=== PATIENT | male | born 1985 | race Caucasian/White ===

== ENCOUNTER → 2021-01-28 09:36 | Outpatient (CLI) | payer SELFPAY | PROVIDERS: PCP Pediatrics; Visit Provider Nurse Practitioner | DX: Z20.822 Contact with and (suspected) exposure to COVID-19 (principal) | CPT/HCPCS: C9803; U0003; U0005 ==

== ENCOUNTER → 2021-03-24 15:42 | Outpatient (CLI) | payer OTHER, SELFPAY ==
--- NOTE | 2021-03-24 15:43 | MR_ITS ---
FINAL REPORT CLINICAL HISTORY: LBP radiating down left leg. LBP WORSE ON LT SIDE. PAIN DOWN LT LEG TO KNEE. SYMPTOMS [id number]. NO INJURY OR TRAUMA. FINDINGS: Multiplanar MR imaging of the lumbar spine was performed without contrast. On the sagittal T2-weighted images, disc degeneration is seen at L4-5. There are endplate changes at L4-5. The vertebral alignment is normal. There is no evidence of fracture. The conus has an unremarkable appearance. L1-2: There is no significant canal stenosis or neural foraminal narrowing. L2-3: There is no significant canal stenosis or neural foraminal narrowing. L3-4: There is no significant canal stenosis or neural foraminal narrowing. L4-5: An annular bulge and facet arthropathy are present. There is a broad-based left paracentral disc protrusion resulting in left L5 nerve root impingement. There is severe bilateral neural foraminal narrowing. L5-S1: Facet arthropathy is present. There is no significant canal stenosis or neural foraminal narrowing. IMPRESSION: Broad-based left paracentral disc protrusion at L4-5 results in left L5 nerve root impingement and severe bilateral neural foraminal narrowing. Reviewed, Interpreted and Dictated by Dago Herrera III, MD Transcribed by Caridad Roth Authenticated by Dago Herrera III, MD on 03/24/2021 04:59:07 PM [facility]
== END ==
PROVIDERS: PCP Physician Assistant; Visit Provider Physician Assistant
DX: M54.50 Low back pain, unspecified (principal); M79.605 Pain in left leg
CPT/HCPCS: 72148; 76376

== ENCOUNTER → 2021-04-21 14:15 | Outpatient (POV) | payer OTHER, SELFPAY ==
[2021-04-21 14:33] VITALS: BP 109/83; PULSE 79; RESP 20; TEMP 35.6; O2SAT 98; BMI 26.5
--- NOTE | 2021-04-21 16:58 | HMH.PMCON ---
Assessment and Plan (1) Degenerative disc disease, lumbar Status: Acute Category: Medical Code(s): M51.36 - Other intervertebral disc degeneration, lumbar region (2) Lumbar radiculopathy Status: Acute Category: Medical Code(s): M54.16 - Radiculopathy, lumbar region (3) Facet arthropathy Status: Acute Category: Medical Code(s): M47.819 - Spondylosis without myelopathy or radiculopathy, site unspecified (4) Lumbar spondylosis Status: Acute Category: Medical Code(s): M47.816 - Spondylosis without myelopathy or radiculopathy, lumbar region (5) Low back pain radiating to left leg Status: Chronic Category: Medical Code(s): M54.50 - Low back pain, unspecified; M79.605 - Pain in left leg - Assessment and plan all Dx Assessment and Plan for all problems:: CLINICAL HISTORY: LBP radiating down left leg. LBP WORSE ON LT SIDE. PAIN DOWN LT LEG TO KNEE. SYMPTOMS [id number]. NO INJURY OR TRAUMA. FINDINGS: Multiplanar MR imaging of the lumbar spine was performed without contrast. On the sagittal T2-weighted images, disc degeneration is seen at L4-5. There are endplate changes at L4-5. The vertebral alignment is normal. There is no evidence of fracture. The conus has an unremarkable appearance. L1-2: There is no significant canal stenosis or neural foraminal narrowing. L2-3: There is no significant canal stenosis or neural foraminal narrowing. L3-4: There is no significant canal stenosis or neural foraminal narrowing. L4-5: An annular bulge and facet arthropathy are present. There is a broad-based left paracentral disc protrusion resulting in left L5 nerve root impingement. There is severe bilateral neural foraminal narrowing. L5-S1: Facet arthropathy is present. There is no significant canal stenosis or neural foraminal narrowing. IMPRESSION: Broad-based left paracentral disc protrusion at L4-5 results in left L5 nerve root impingement and severe bilateral neural foraminal narrowing. Reviewed, Interpreted and Dictated by Dago Herrera III, MD Transcribed by Caridad Roth Authenticated by Dago Herrera III, MD on 03/24/2021 04:59:07 PM [facility] Patient is a pleasant 35-year-old male who presents today with low back pain that radiates mainly to his left side. He has an abnormal MRI. At L4-L5, there is a broad base left paracentral disc protrusion resulting in left L5 nerve root impingement, severe bilateral neuroforaminal narrowing at L5 nerve root, he has facet arthropathies at L4-L5 and L5-S1. Patient has been referred to physical therapy and will start his sessions soon with them. Previous MRI and presentation, I will schedule the patient for a medial branch block at L4-L5, L5-S1. Risks and benefits of the procedure have been explained to the patient. Patient would like to proceed with the procedure. Patient has been instructed to contact the clinic with any concerns before the next appointment. Dr. Duarte has reviewed this note and agrees with this plan of care. This note was dictated using voice recognition software and make contain errors or omissions. HPI - Data of Consult Patient: new to practice Consult date: 04/21/21 Requesting Physician: ZULLY Ybarra - Consult Narrative Reason for consult: Back pain History of present illness: Mr. Mcrae is a 35 year old male is a new patient. Patient is referred by Loida Daniels PA-C. Thank you for the referral. Patient presents today with a chronic back pain that has gotten worse in the last 2 to 3 months. Patient reports radiating pain to his bilateral lower extremities, worse on the left side than the right.. Loss of bowel and bladder functions. Patient denies any recent trauma or falls. Patient says that is worse with any prolonged activity especially with walking and lifting. Patient has gone to the chiropractor with minimal relief. Patient is also been to his primary care provider who did 2 rounds of Toradol shots and
== END ==
PROVIDERS: Visit Provider Student in an Organized Health Care Education/Training Program
DX: M51.16 Intervertebral disc disorders with radiculopathy, lumbar region (principal); M47.816 Spondylosis without myelopathy or radiculopathy, lumbar region
CPT/HCPCS: 99202; G0463

== ENCOUNTER 2021-04-29 14:47 | Day surgery (SDC) | payer OTHER, SELFPAY ==
[2021-04-29 14:51] VITALS: BP 140/94; BP 143/92; PULSE 91; PULSE 96; RESP 18; RESP 20; O2SAT 100
[2021-04-29 14:55] VITALS: BP 138/99; PULSE 95; RESP 20; TEMP 36.7; O2SAT 99; BMI 25.8
--- NOTE | 2021-04-29 15:13 | HMH.PMPROC ---
- Procedure Date: 04/29/21 Time: 15:13 Anesthesiologist:: Usman Duarte MD Complications:: None Pre-procedure Diagnosis:: Degenerative disc disease of lumbar spine with lumbar spondylosis and lumbar facet arthropathy Post-procedure Diagnosis:: Same Indications for Procedure:: This patient is a pleasant 35-year-old white male who we are treating for low back pain with lumbar spondylosis and lumbar facet arthropathy. He has increasing pain in his back worse with extension and twisting. We will plan on bilateral lumbar facet joint injection/medial branch blocks of L4-5 and L5-S1 today. Procedure Details:: Lumbar medial branch block Informed consent was obtained and the risks and benefits of the procedure was explained to the patient. The back was prepped using ChloraPrep. The skin and subcutaneous tissues were anesthetized using lidocaine. I placed 22-gauge spinal needles into the facet joint/medial branches of L4-L5 and L5-S1 bilaterally. Needle placement was confirmed with dye. After this we injected 3 mL bupivacaine 0.25% and Depo-Medrol 20 mg into each facet joint/medial branch of L4-L5 and L5-S1 bilaterally. We used a total of 80 mg Depo-Medrol for both levels bilaterally. The patient tolerated the procedure well with no complications. Plan and Disposition:: We will follow-up with him in 2 weeks. Will reevaluate symptoms at that time.
[2021-04-29 15:14] VITALS: BP 124/90; PULSE 114; RESP 20; O2SAT 96
== END 2021-04-29 15:15 | disposition home or self-care (01) ==
LOC: SC.PAINP 14:48
PROVIDERS: PCP Physician Assistant; Visit Provider Anesthesiology
DX: M51.36 Other intervertebral disc degeneration, lumbar region (principal); M47.816 Spondylosis without myelopathy or radiculopathy, lumbar region; M54.06 Panniculitis affecting regions of neck and back, lumbar region; J45.909 Unspecified asthma, uncomplicated; Z72.0 Tobacco use
CPT/HCPCS: 62323; J1040; Q9966

== ENCOUNTER → 2021-06-02 11:36 | Outpatient (POV) | payer OTHER, SELFPAY ==
[2021-06-02 11:49] VITALS: BP 113/81; PULSE 95; RESP 18; TEMP 36.5; O2SAT 97; BMI 25.8
--- NOTE | 2021-06-02 14:00 | HMH.PAINSOAP ---
[facility] Pain Management SOAP Note Subjective:: Patient is a pleasant 35-year-old male who is here for a follow up after facet injections/medial branch block of L4-L5 and L5-S1 bilaterally #1 On April 29, 2021. Patient is currently being treated for degenerative disc disease of lumbar spine, lumbar spondylosis, lumbar facet arthropathy. After the procedure, patients reports 100% relief and rates pain today at 0 out of 10. Patient denies any issues after the procedure. Patient has been able to increase his activity since the injection. Patient is satisfied after the injection. Michele number [id number] with an active morphine equivalent 0. Drug screens have been reviewed and appropriate. Review of Systems: General: No recent weight changes, no fever, no sleep disturbances Respiratory: No cough, no shortness of air, no recurring pulmonary infections Cardiovascular/peripheral vascular: No chest pain, no palpitations, no edema, no shortness of breath Gastrointestinal: No new onset incontinence, normal bowel movements reported Genitourinary: No new onset incontinence Musculoskeletal: Low back pain Psychiatric: [Normal mood/affect] Neurological: [Denies weakness in extremities], [denies balance issues] Objective:: Physical Exam: General: Alert and oriented x3, no acute distress, pleasant and cooperative, [on room air] Lungs: Respirations even and unlabored, symmetrical chest expansion Eyes: PERRL Musculoskeletal: Flexion and extension of lumbar [spine] somewhat guarded secondary to pain, [antalgic gait noted]; Neurological: Speech clear, no gross sensory deficit Assessment:: Degenerative disc disease of lumbar spine Lumbar facet arthropathy Lumbar spondylosis Plan:: Patient continues to have significant relief after the medial branch block injection. Denies any issues after the injection. We will follow-up with this patient in 3 months for reevaluation of chronic pain syndrome and to see if we need to do a repeat injection. Patient has been instructed to contact the clinic with any concerns before the next appointment. Dr. Duarte has reviewed this note and agrees with this plan of care. This note was dictated using voice recognition software and make contain errors or omissions. [facility] History 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: Reports:: Asthma Denies:: Cancer, Diabetes Mellitus Type 1, Diabetes Mellitus Type 2, MRSA, Seizures *Have you ever received a pneumonia vaccine?: No *Have you received a flu vaccine this season?: No Other 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: Reports: Arthritis Other Surgeries: Yes: Hernia Repair Amputation: No Fractures: Yes (Finger, left middle) - *Social History Smoking Status: Current every day smoker Tobacco Type: e-cigarettes # Packs/Day (cigarettes): 1 Alcohol Intake: never Substance Use Type: marijuana *Occupational Status:: employed Housing: house Household Members: other *Travel in the last 8 weeks: None Family Hx:: Unable to obtain
== END ==
PROVIDERS: Visit Provider Student in an Organized Health Care Education/Training Program
DX: M51.36 Other intervertebral disc degeneration, lumbar region (principal); M47.816 Spondylosis without myelopathy or radiculopathy, lumbar region; M54.06 Panniculitis affecting regions of neck and back, lumbar region
CPT/HCPCS: 99212; G0463

== ENCOUNTER 2021-07-07 17:51 | Emergency (ER) | payer OTHER, SELFPAY ==
[2021-07-07 17:53] VITALS: BP 142/91; PULSE 89; RESP 18; TEMP 36.7; O2SAT 100; BMI 25.8
--- NOTE | 2021-07-07 17:55 | PC.NURSE ---
patient ambulatory to restroom to provide urine specimen
--- NOTE | 2021-07-07 17:59 | PC.NURSE ---
patient out of restroom, hooked up to monitor.
--- NOTE | 2021-07-07 18:02 | PC.NURSE ---
Cheyenne Cobian, RN at
[2021-07-07 18:05] LABS: Microscopic, Urine URINE MICROSCOPIC (MICROSCOPIC)
[2021-07-07 18:08] LABS: Appearance,Urine CLEAR (Clear); Bilirubin,Urine Negative (Negative); Blood, Urine TRACE-L (Negative); Color,Urine YELLOW (Yellow); Glucose,Urine (UA) Negative (Negative); Ketones,Urine Negative (Negative); Leukocyte Esterase,Urine 1+ (Negative); Nitrate,Urine Negative (Negative); PH,Urine 7.5 (5.0-8.5); Protein,Urine Negative (Negative); Specific Gravity, Urine <= 1.005 (1.005-1.030); Urobilinogen,Urine 0.2 EU/dl (0.2)
--- NOTE | 2021-07-07 18:08 | CT_ITS ---
PROCEDURE INFORMATION: Exam: CT Abdomen And Pelvis Without Contrast Exam date and time: 07/07/2021 6:10 PM Age: 35 years old Clinical indication: Other: Hematuria; Additional info: R/O kidney stone. Hematuria TECHNIQUE: Imaging protocol: Computed tomography of the abdomen and pelvis without contrast. Radiation optimization: All CT scans at this facility use at least one of these dose optimization techniques: automated exposure control; mA and/or kV adjustment per patient size (includes targeted exams where dose is matched to clinical indication); or iterative reconstruction. COMPARISON: MR LUMBAR SPINE WO CON 03/24/2021 4:08 PM FINDINGS: Liver: Normal. No mass. Gallbladder and bile ducts: Normal. No calcified stones. No ductal dilation. Pancreas: Normal. No ductal dilation. Spleen: The spleen is mildly prominent. Adrenal glands: Normal. No mass. Kidneys and ureters: Normal. No hydronephrosis. Stomach and bowel: Unremarkable. No obstruction. No mucosal thickening. Appendix: No evidence of appendicitis. Intraperitoneal space: Unremarkable. No free air. No significant fluid collection. Vasculature: Unremarkable. No abdominal aortic aneurysm. Lymph nodes: Unremarkable. No enlarged lymph nodes. Urinary bladder: Unremarkable as visualized. Reproductive: Unremarkable as visualized. Bones/joints: Unremarkable. No acute fracture. Soft tissues: Unremarkable. IMPRESSION: No definite evidence of acute abdominal or pelvic pathology. Remainder of findings as described above.
--- NOTE | 2021-07-07 18:10 | PC.NURSE ---
Cheyenne Cobian, RN at
--- NOTE | 2021-07-07 18:15 | PC.NURSE ---
patient to radiology with process environmental technician by wheelchair
--- NOTE | 2021-07-07 18:21 | PC.NURSE ---
patient back from radiology by wheelchair with sewer and drain technician
[2021-07-07 18:28] LABS: Basophils # 0.2 K/mm3 (0-0.2); Basophils % 2.1 % (0.1-2.0); Eosinophils # 0.3 K/mm3 (0.0-0.4); Eosinophils % 2.3 % (0.1-12.0); Hematocrit 45.8 % (42.0-52.0); Hemoglobin 15.4 g/dL (14.1-18.0); Lymphocytes # 1.5 K/mm3 (0.7-4.5); Lymphocytes % 12.8 % (10-50); Mean Corpuscular HGB Conc 33.5 g/dL (31.8-35.4); Mean Corpuscular Hemoglobin 29.2 pg (27.0-31.2); Mean Corpuscular Volume 87.1 fl (80-94); Mean Platelet Volume 8.3 fl (7.4-10.4); Monocytes # 0.7 K/mm3 (0.1-1.0); Monocytes % 5.8 % (1.7-9.3); Platelet Count 327 K/mm3 (142-424); Red Blood Count 5.26 M/mm3 (4.60-6.20); Red Cell Distribution Width 14.2 % (11.5-17.5); White Blood Count 11.7 K/mm3 (4.8-10.8)
[2021-07-07 18:29] LABS: Bacteria,Urine 1+ /lpf; RBC,Urine Occasional #/hpf (0-3)
[2021-07-07 18:30] VITALS: BP 122/86; PULSE 82; O2SAT 99
[2021-07-07 18:38] LABS: Alanine Aminotransferase 19 U/L (12-78); Albumin Level 4.3 g/dl (3.5-5.0); Albumin/Globulin Ratio 1.2 (1.1-1.8); Alkaline Phosphatase 79 U/L (38-126); Anion Gap 9.3 mEq/L (5-15); Aspartate Amino Transferase 26 U/L (17-59); Bilirubin,Total 0.2 mg/dl (0.2-1.3); Blood Urea Nitrogen 11 mg/dl (9-20); Calcium 9.4 mg/dl (8.4-10.2); Carbon Dioxide 34 mmol/L (22.0-30.0); Chloride 97 mmol/L (98-107); Creatinine Clearance Estimated 172 mL/min (50-200); Estimated Glomerular Filt Rate 129 ml/min (>60); GFR (African American) 156 ML/MIN (>60); Globulin 3.6 g/dL (1.3-3.2); Glucose 112 mg/dl (74-100); Potassium 3.3 mmoL/L (3.5-5.1); Sodium 137 mmol/L (136-145); Total Protein,Serum 7.9 g/dl (6.3-8.2)
--- NOTE | 2021-07-07 18:53 | HMH.EDGENADL ---
ED Disposition Clinical Impression: Urinary tract infection Qualifiers: Urinary tract infection type: site unspecified Hematuria presence: with hematuria Qualified Code(s): N39.0 - Urinary tract infection, site not specified Hematuria Qualifiers: Hematuria type: gross Qualified Code(s): R31.0 - Gross hematuria Disposition: Home, Self-Care Condition on Discharge: Good Instructions: DI for Urinary Tract Infection (UTI), DI for Hematuria Additional Instructions: Take antibiotics as prescribed. Ibuprofen as needed for pain. Additional instructions for URINARY TRACT INFECTION: Take antibiotic as prescribed. See your physician in 2-3 days for follow up and culture results. Return immediately if you have an uncontrollable fever greater than 102 degrees, severe back or abdominal pain, inability to urinate, or repetitive vomiting. Prescriptions: Ciprofloxacin HCl [Cipro 500mg Tab] 500 mg PO BID #20 tab [id number] Doxycycline Monohydrate [Monodox] 100 mg PO BID #20 cap [facility]: [facility] Referrals: Loida Daniels PA [Primary Care Provider] - - Critical Care Critical Care Time: No Attestation: On 07/07/21, the high probability of a clinically significant, sudden or life threatening deterioration of the following system(s) required my full and direct attention, intervention and personal management. The time I documented below is in addition to time spent performing reported procedures but includes the following listed in this critical care notation. Medical Decision Making - Michele Inquiry Pt receiving controlled substance: No Vital Signs: 07/07/21 17:53 07/07/21 18:30 07/07/21 19:00 Temperature 98.1 F Temperature Source Oral Pulse Rate 82 81 Pulse Rate [Left Radial] 89 Respiratory Rate 18 Blood Pressure 122/86 133/94 H Blood Pressure [Right Arm] 142/91 H Blood Pressure Mean 98 Blood Pressure Mean [Right Arm] 108 Blood Pressure Source Automatic Cuff Blood Pressure Source [Right Arm] Automatic Cuff Blood Pressure Position Sitting Blood Pressure Position [Right Arm] Sitting 02 Sat by Pulse Oximetry 100 99 99 Oxygen Delivery Method Room Air Room Air - Lab Data Lab Results 07/07/21 18:00: Urine Color Yellow, Urine Appearance Clear, Urine pH 7.5, Ur Specific [place] <= 1.005, Urine Protein Negative, Urine Glucose (UA) Negative, Urine Ketones Negative, Urine Blood Trace-l, Urine Nitrate Negative, Urine Bilirubin Negative, Urine Urobilinogen 0.2, Ur Leukocyte Esterase 1+ A, Urine RBC Occasional, Urine WBC 10-20, Ur Squamous Epith Cells 3-5, Urine Bacteria 1+ 07/07/21 18:15: WBC 11.7 H, RBC 5.26, Hgb 15.4, Hct 45.8, MCV 87.1, MCH 29.2, MCHC 33.5, RDW 14.2, Plt Count 327, MPV 8.3, Neut % (Auto) 77.0, Lymph % (Auto) 12.8, [place] % (Auto) 5.8, Eos % (Auto) 2.3, Baso % (Auto) 2.1 H, Neut # (Auto) 9.0 H, Lymph # (Auto) 1.5, [place] # (Auto) 0.7, Eos # (Auto) 0.3, Baso # (Auto) 0.2 07/07/21 18:15: Sodium 137, Potassium 3.3 L, Chloride 97 L, Carbon Dioxide 34 H, Anion Gap 9.3, BUN 11, Creatinine 0.70, Estimated Creat Clear 172, Estimated GFR 129, Est GFR ( Amer) 156, Glucose 112 H, Calcium 9.4, Total Bilirubin 0.2, AST 26, ALT 19, Alkaline Phosphatase 79, Total Protein 7.9, Albumin 4.3, Globulin 3.6 H, Albumin/Globulin Ratio 1.2 Result diagrams: 07/07/21 18:15 07/07/21 18:15 Orders (Tests/Meds): ED MEDICATIONS Generic Name Dose Route Start Last Admin Trade Name Freq PRN Reason Stop Dose Admin Sodium Chloride 1,000 mls @ 999 mls/hr 07/07/21 18:30 07/07/21 18:27 Sod Chlor 0.9% 1000ml Bag IV 07/07/21 19:30 999 mls/hr .Q1H1M EMILIE Administration Ceftriaxone Sodium 1 gm/ 50 mls @ 100 mls/hr 07/07/21 19:15 07/07/21 19:24 Sodium Chloride IV 07/21/21 19:14 100 mls/hr Q24H EMILIE Administration Discontinued Medications Generic Name Dose Route Start Last Admin Trade Name Freq PRN
[2021-07-07 19:00] VITALS: BP 133/94; PULSE 81; O2SAT 99
--- NOTE | 2021-07-07 19:00 | PC.NURSE ---
ED MD at
[2021-07-07 19:37] VITALS: BP 130/88; PULSE 72; RESP 18; TEMP 36.7; O2SAT 99
[2021-07-12 07:42] LABS: Neisseria gonorrhoeae, NAA Negative (Negative)
== END 2021-07-07 19:42 | disposition home or self-care (01) ==
PROVIDERS: Emergency Provider Emergency Medicine; PCP Physician Assistant
DX: N30.01 Acute cystitis with hematuria (principal); A71.9 Trachoma, unspecified; M51.36 Other intervertebral disc degeneration, lumbar region; M54.17 Radiculopathy, lumbosacral region; M54.30 Sciatica, unspecified side; M54.50 Low back pain, unspecified; G89.29 Other chronic pain; M19.90 Unspecified osteoarthritis, unspecified site; J45.909 Unspecified asthma, uncomplicated; F17.290 Nicotine dependence, other tobacco product, uncomplicated; Z79.1 Long term (current) use of non-steroidal anti-inflammatories (NSAID); Z79.51 Long term (current) use of inhaled steroids; Z79.899 Other long term (current) drug therapy
CPT/HCPCS: 74176; 80053; 81001; 85025; 87086; 87491; 87591; 96361; 96374; 96375; 99285; J0696; J2405

== ENCOUNTER → 2021-07-19 13:50 | Outpatient (CLI) | payer OTHER, SELFPAY ==
[2021-07-19 14:04] LABS: Basophils # 0.1 K/mm3 (0-0.2); Basophils % 1.5 % (0.1-2.0); Eosinophils # 0.3 K/mm3 (0.0-0.4); Eosinophils % 3.7 % (0.1-12.0); Hematocrit 47.7 % (42.0-52.0); Hemoglobin 15.9 g/dL (14.1-18.0); Lymphocytes # 1.1 K/mm3 (0.7-4.5); Lymphocytes % 14.1 % (10-50); Mean Corpuscular HGB Conc 33.2 g/dL (31.8-35.4); Mean Corpuscular Hemoglobin 29.2 pg (27.0-31.2); Mean Corpuscular Volume 87.8 fl (80-94); Mean Platelet Volume 8.7 fl (7.4-10.4); Monocytes # 0.7 K/mm3 (0.1-1.0); Monocytes % 8.1 % (1.7-9.3); Neutrophils # 5.8 K/mm3 (1.8-7.8); Neutrophils % 72.5 % (37.0-80.0); Platelet Count 331 K/mm3 (142-424); Red Blood Count 5.44 M/mm3 (4.60-6.20); Red Cell Distribution Width 14.3 % (11.5-17.5)
[2021-07-19 14:17] LABS: Alanine Aminotransferase 33 U/L (12-78); Albumin Level 4.4 g/dl (3.5-5.0); Albumin/Globulin Ratio 1.3 (1.1-1.8); Alkaline Phosphatase 92 U/L (38-126); Anion Gap 15.8 mEq/L (5-15); Aspartate Amino Transferase 37 U/L (17-59); Bilirubin,Total 0.2 mg/dl (0.2-1.3); Blood Urea Nitrogen 12 mg/dl (9-20); Calcium 9.2 mg/dl (8.4-10.2); Carbon Dioxide 27 mmol/L (22.0-30.0); Chloride 101 mmol/L (98-107); Chol/HDL Ratio 5.1 (1-3.5); Cholesterol 188 mg/dl (140-200); Estimated Glomerular Filt Rate 129 ml/min (>60); GFR (African American) 156 ML/MIN (>60); Globulin 3.4 g/dL (1.3-3.2); Glucose 82 mg/dl (74-100); HDL Cholesterol 37 mg/dl (40-60); Potassium 3.8 mmoL/L (3.5-5.1); Sodium 140 mmol/L (136-145); Total Protein,Serum 7.8 g/dl (6.3-8.2); Triglycerides 110 mg/dl (30-150); VLDL Cholesterol 22 mg/dL (0-40)
[2021-07-19 14:28] LABS: Direct LDL Cholesterol 110.72 mg/dL (100-129)
[2021-07-21 08:22] LABS: HSV 1 IgG, Type Spec <0.91 index (0.00-0.90); HSV 2 IgG, Type Spec <0.91 index (0.00-0.90)
[2021-07-21 09:14] LABS: HIV Screen 4th Generation wRfx Non Reactive (Non Reactive)
[2021-07-21 22:15] LABS: Neisseria gonorrhoeae, NAA Negative (Negative)
== END ==
PROVIDERS: PCP Family Medicine; Visit Provider Family Medicine
DX: Z20.2 Contact with and (suspected) exposure to infections with a predominantly sexual mode of transmission (principal); Z11.4 Encounter for screening for human immunodeficiency virus [HIV]
CPT/HCPCS: 80053; 80061; 84443; 85025; 86695; 86703; 86790; 87491; 87591; G0432

== ENCOUNTER → 2021-08-11 15:49 | Outpatient (POV) | payer OTHER, SELFPAY ==
[2021-08-11 17:10] VITALS: BP 132/82; PULSE 80; RESP 18; TEMP 36.9; O2SAT 99; BMI 26.6
--- NOTE | 2021-08-13 13:29 | HMH.PAINSOAP ---
[facility] Pain Management SOAP Note Subjective:: Patient is a pleasant 35-year-old male who presents today for follow-up. Patient is currently being treated for degenerative disc disease of the lumbar spine, lumbar facet arthropathy, lumbar spondylosis. We have been managing this patient with injective therapy. He had a diagnostic facet injection/medial branch block at L4-L5 and L5-S1 bilaterally on April 29, 2021 that provided 100% of relief that lasted for 1.5 months. He was able to increase his activity during this 1 and half months. He was able to sleep more. We will try to schedule this patient for a second diagnostic medial branch block, he was denied by insurance. Patient states that his pain is worse with lumbar flexion, extension and especially rotation. Lumbar MRI does show an annular bulge and facet arthropathy. There is a broad-based left paracentral disc protrusion resulting in left L5 nerve root impingement. There is severe bilateral neural foraminal narrowing. There is also facet arthropathy present at L5-S1. Patient has tried and failed conservative therapy in the past including oral medications, physical therapy, and home exercises for greater than 6 weeks. He rates his pain today as 6 out of 10. Review of Systems: General: No recent weight changes, no fever, no sleep disturbances Respiratory: No cough, no shortness of air, no recurring pulmonary infections Cardiovascular/peripheral vascular: No chest pain, no palpitations, no edema, no shortness of breath Gastrointestinal: No new onset incontinence, normal bowel movements reported Genitourinary: No new onset incontinence Musculoskeletal: Low back pain Psychiatric: [Normal mood/affect] Neurological: [Denies weakness in extremities], [denies balance issues] Objective:: Physical Exam: General: Alert and oriented x3, no acute distress, pleasant and cooperative Lungs: Respirations even and unlabored, symmetrical chest expansion Eyes: PERRL Musculoskeletal: Flexion and extension of lumbar [spine] somewhat guarded secondary to pain, [antalgic gait noted]; Positive Kemps, TTP around lumbar facets Neurological: Speech clear, no gross sensory deficit Assessment:: Degenerative disc disease of lumbar spine, lumbar facet arthropathy, lumbar spondylosis Plan:: Patient presents today with worsening low back pain especially during rotation. Patient is tender to palpation around the lumbar facets and he has a positive Kemps test on exam. He previously had a diagnostic medial branch block/facet injections at L4-L5 and L5-S1 that provided 100% of relief for 1 and half months. MRI that shows lumbar facet arthropathy at L4-L5 and L5-S1. Based on his presentation and exam, I do believe that the patient will benefit from a repeat diagnostic medial branch block/facet injections at L4-L5 and L5-S1 bilaterally. We will schedule the patient for these injections. Risks and benefits of the procedure have been explained to the patient. Patient would like to proceed with the procedure. Patient is not on any blood thinners. If the patient gets significant relief from this diagnostic injection, we will schedule the patient for a lumbar radiofrequency ablation at these levels. Patient has been instructed to contact the clinic with any concerns before the next appointment. Dr. Duarte has reviewed this note and agrees with this plan of care. This note was dictated using voice recognition software and make contain errors or omissions. [facility] History 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: Reports:: Asthma, MRSA Denies:: Cancer, Diabetes Mellitus Type 1, Diabetes Mellitus Type 2, Seizures *Have you ever received a pneumonia vaccine?: No *Have you received a flu vaccine this season?: No Other 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: Reports: Arthritis Other Surgeries: Yes: Hernia Repair Amputation: No Fractures: Yes (Finger, left middle) - *Social History Smoking Status: Current every day smoker Tobacco Type: e-cigarettes # Packs/Day (cigarettes): 1 A
== END ==
PROVIDERS: Visit Provider Student in an Organized Health Care Education/Training Program
DX: M51.36 Other intervertebral disc degeneration, lumbar region (principal); M54.06 Panniculitis affecting regions of neck and back, lumbar region; M47.816 Spondylosis without myelopathy or radiculopathy, lumbar region
CPT/HCPCS: 99212; G0463

== ENCOUNTER → 2021-08-23 10:06 | Outpatient (CLI) | payer OTHER, SELFPAY ==
[2021-08-25 07:18] LABS: H. pylori Breath Test Negative (Negative)
== END ==
PROVIDERS: PCP Physician Assistant; Visit Provider Physician Assistant
DX: K21.9 Gastro-esophageal reflux disease without esophagitis (principal)
CPT/HCPCS: 83013

== ENCOUNTER 2021-09-02 13:55 | Day surgery (SDC) | payer OTHER, SELFPAY ==
--- NOTE | 2021-09-02 14:04 | HMH.PMPROC ---
- Procedure Date: 09/02/21 Time: 14:04 Anesthesiologist:: Pa Tee CRNA Complications:: None Pre-procedure Diagnosis:: Degenerative disc disease lumbar spine multilevels. Lumbar radiculopathy symptoms. Postlaminectomy syndrome. Post-procedure Diagnosis:: Same Indications for Procedure:: This patient is a pleasant 51-year-old white male that comes our clinic for pain pump interrogation and refill. Patient is currently being managed with Dilaudid 10 mg/mL at a rate of 0.8 mg/day. His pump was interrogated and refilled today. Procedure Details:: Details of the procedure were explained to the patient. The patient was taken the procedure room placed in the sitting position. The area over the pain pump was cleansed using chlorhexidine as a cleansing solution. Using a 22-gauge needle the pump was accessed with ease. 5 cc of solution was withdrawn and discarded appropriately be at this time 20 cc of Dilaudid 10 mg/mL was in injected into the pump. Patient tolerated the procedure without difficulty. There are no complications. Plan and Disposition:: Patient will continue with Dilaudid 2 mg/mL at 1.8 mg/day. He has no complications with his pump. He does not complain of any side effects. He reports his pain is minimal.
[2021-09-02 14:07] VITALS: BP 122/79; PULSE 88; RESP 18; TEMP 36.9; O2SAT 100; BMI 26.2
[2021-09-02 14:12] VITALS: BP 136/87; PULSE 91; RESP 20
[2021-09-02 14:20] VITALS: BP 128/90; PULSE 103; RESP 20; O2SAT 98
--- NOTE | 2021-09-02 14:23 | P.PCN_ITS ---
- Procedure Date: 09/02/21 Time: 14:23 Anesthesiologist:: Pa Tee CRNA Complications:: None Pre-procedure Diagnosis:: Degenerative disc disease lumbar spine multilevels. Multilevel lumbar facet arthropathy. Lumbar spondylosis. Post-procedure Diagnosis:: Same Indications for Procedure:: This patient is a pleasant 35-year-old male that comes to our injection clinic today for medial branch block L4-5, L5-S1 bilaterally. Patient complains of low back pain increases when standing for any length of time. Patient reports pain with extension. He rates his pain 7/10. Procedure Details:: Informed consent was obtained and the risk and benefits of the procedure was explained to the patient. Patient was taken to the procedure room where noninvasive monitors were placed, including noninvasive blood pressure cuff as well as pulse oximeter. The area over the lumbar spine was cleansed using chlorhexidine as a cleansing solution. I anesthetized the skin and subcutaneous tissues with 1% Lidocaine. I placed 22-gauge spinal needles into the facet joint/ medial branches of L4-L5, and L5-S1] bilaterally. Needle placement was confirmed with fluoroscopy. After confirmation of needle placement, each site was injected with 1 mL of 1% lidocaine and 0.25 % Marcaine and 10 mg of Depo- Medrol. A total of 80 mg of depo medrol was used for bilateral medial branch blocks of L4-L5, and L5-S1] bilaterally. Patient tolerated the procedure without difficulty. There were no complications. Plan and Disposition:: Patient was discharged without incident.
== END 2021-09-02 14:20 | disposition home or self-care (01) ==
LOC: SC.PAINP 13:56
PROVIDERS: PCP Physician Assistant; Visit Provider Nurse Anesthetist, Certified Registered
DX: M51.16 Intervertebral disc disorders with radiculopathy, lumbar region (principal); M47.26 Other spondylosis with radiculopathy, lumbar region; M96.1 Postlaminectomy syndrome, not elsewhere classified; M19.90 Unspecified osteoarthritis, unspecified site; Z72.0 Tobacco use
CPT/HCPCS: 62370; 64493; 64494; J1040

== ENCOUNTER → 2021-09-19 17:22 | Outpatient (CLI) | payer OTHER, SELFPAY | PROVIDERS: PCP Physician Assistant; Visit Provider Internal Medicine | DX: Z01.812 Encounter for preprocedural laboratory examination (principal); Z20.822 Contact with and (suspected) exposure to COVID-19; Z13.810 Encounter for screening for upper gastrointestinal disorder | CPT/HCPCS: C9803; U0003; U0005 ==

== ENCOUNTER 2021-09-21 12:16 | Day surgery (SDC) | payer OTHER, SELFPAY ==
[2021-09-15 13:43] VITALS: BMI 26.2
[2021-09-21 12:27] VITALS: BP 133/94; PULSE 80; RESP 17; TEMP 36.3; O2SAT 97
--- NOTE | 2021-09-21 12:43 | HMH.ANESCL ---
[facility] Anesthesia Checklist - Patient Identification Patient Identification: Arm Band - Structural Data Admitted From: Home Planned Operative Procedure/s: EGD Consent for Planned Operative Procedure(s) Verified: Yes - NPO Status Verified Time NPO: 00:00 - Airway Assessment C-Spine Mobility Assessed: Yes TMJ Mobility Assessed: Yes Dentition: Good Dentition - Neurological Assessment Level of Consciousness: Awake Hx Seizures: No Numbness or tingling in extremities: No - Anesthesia Plan Anesthesia Risk discussed: Yes Anesthesia Plan: Verified ASA Class: II Anesthesia Type: MAC [facility] History I have reviewed the patient's past medical history: Yes 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: Reports:: Anxiety, Asthma, Gastroesophageal Reflux Disease(GERD) Denies:: Cancer, Diabetes Mellitus Type 1, Diabetes Mellitus Type 2, Internal Pacemaker, MRSA, Seizures *Have you ever received a pneumonia vaccine?: No *Have you received a flu vaccine this season?: No Other 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: Reports: Arthritis Anesthesia experience/problems:: None Other Surgeries: Yes: Hernia Repair. No: Pacemaker Amputation: No Fractures: Yes (Finger, left middle) - *Social History Smoking Status: Current every day smoker Tobacco Type: cigarettes # Packs/Day (cigarettes): 1 Alcohol Intake: never Alcohol Intake Frequency:: holidays/special occasions only Substance Use Type: marijuana *Occupational Status:: employed Housing: house Household Members: other *Travel in the last 8 weeks: Inside the [place] Family Hx:: No significant family history
[2021-09-21 12:48] VITALS: O2SAT 97
--- NOTE | 2021-09-21 13:00 | HMH.SCOPE ---
- Procedure: Date: 09/21/21 Patient Date of :: 1985 Procedure Performed:: EGD Indications:: GERD. Regurgitations of bilious fluid in the morning Performing Provider:: Tarik Arshad MD Referring Provider:: Loida Daniels APRN Sedation:: See RN notes Procedure:: The gastroscope was gently passed through the incisoral orifice into the oral cavity and under direct visualization the esophagus was intubated. The endoscope was passed down the esophagus, through the stomach, and into the duodenum. Color, texture, mucosa, and anatomy of the esophagus, stomach, and duodenum were carefully examined with the scope. Findings:: Oropharynx: normal Esophagus: normal. Biopsies obtained EG Junction: intact at 40 cm Cardia: normal Fundus: normal Body: Mild gastritis. Biopsies obtained Antrum: Mild gastritis, linear erythema. Biopsies obtained Duodenal bulb: normal Duodenum (second and third portion): normal Recommendations:: Await pathology results Continue omeprazole 40 mg once daily Avoid eating large meals within 3 hours of bedtime Can use pepcid 40 mg prior to bedtime Complications:: none Estimated blood obtained (mL): 0
[2021-09-21 13:01] VITALS: BP 130/90; PULSE 102; RESP 18; TEMP 36.4; O2SAT 93
[2021-09-21 13:10] VITALS: BP 111/75; PULSE 75; RESP 18; O2SAT 96
[2021-09-21 13:20] VITALS: BP 109/71; PULSE 80; RESP 18; O2SAT 93
[2021-09-21 13:30] VITALS: BP 107/73; PULSE 75; RESP 18; O2SAT 95
== END 2021-09-21 13:32 | disposition home or self-care (01) ==
LOC: OUTP 12:18
PROVIDERS: PCP Physician Assistant; Visit Provider Internal Medicine
PROC: 0DJ08ZZ Inspection of Upper Intestinal Tract, Via Natural or Artificial Opening Endoscopic (ICD-10-PCS; CPT 43235; principal; 2021-09-21 13:30)
DX: K21.9 Gastro-esophageal reflux disease without esophagitis (principal); Z72.0 Tobacco use; F41.9 Anxiety disorder, unspecified; K29.70 Gastritis, unspecified, without bleeding
CPT/HCPCS: 43239

== ENCOUNTER → 2021-12-19 11:17 | Outpatient (CLI) | payer OTHER, SELFPAY ==
--- NOTE | 2021-12-19 11:21 | XR_ITS ---
FINAL REPORT TECHNIQUE: Chest PA & Lateral CLINICAL HISTORY: shortness of breath, malaise FINDINGS: 2 views of the chest were performed. The heart size is normal. The mediastinum is within normal limits. There is no acute cardiopulmonary process. There are no pleural effusions. There is no pneumothorax. The bony thorax appears intact. IMPRESSION: No acute cardiopulmonary process. Reviewed, Interpreted and Dictated by Timo Myers MD Transcribed by Yovany Paige Authenticated and [facility]
[2021-12-19 14:16] LABS: Adenovirus,PCR Not Detected (NotDetected); Bordetella Pertussis Not Detected (NotDetected); Chlamydophila Pneumoniae, PCR Not Detected (NotDetected); Coronavirus 19, PCR Not Detected (NotDetected); Coronavirus 229E Not Detected (NotDetected); Coronavirus NL63 Not Detected (NotDetected); Coronavirus OC43 Not Detected (NotDetected); Coronovirus HKU1,PCR Not Detected (NotDetected); Human Metapneumovirus Not Detected (NotDetected); Influenza A, PCR Not Detected (NotDetected); Influenza AH1, 2009 Not Detected (NotDetected); Influenza AH1, PCR Not Detected (NotDetected); Influenza AH3,PCR Not Detected (NotDetected); Influenza B, PCR Not Detected (NotDetected); Mycoplasma Pneumoniae, PCR Not Detected (NotDetected); Parainfluenza 1, PCR Not Detected (NotDetected); Parainfluenza 2, PCR Not Detected (NotDetected); Parainfluenza 3, PCR Not Detected (NotDetected); Parainfluenza 4, PCR Not Detected (NotDetected); Respiratory Syncytial Virus Not Detected (NotDetected); Rhinovirus/Enterovirus Not Detected (NotDetected)
== END ==
PROVIDERS: PCP Physician Assistant; Visit Provider Physician Assistant
DX: R06.02 Shortness of breath (principal); R68.89 Other general symptoms and signs
CPT/HCPCS: 71046; 87581; 87632; 87798; C9803; U0003; U0005

== ENCOUNTER → 2021-12-19 14:38 | Outpatient (CLI) | payer OTHER, SELFPAY | PROVIDERS: PCP Physician Assistant; Visit Provider Physician Assistant | DX: R68.89 Other general symptoms and signs (principal) ==

== ENCOUNTER 2022-01-25 08:25 | Emergency (ER) | payer OTHER, SELFPAY ==
--- NOTE | 2022-01-25 09:35 | EXP.UTC ---
Discharge Plan Disposition Patient Disposition: Home, Self-Care Condition: Good Prescriptions Prescriptions: New azithromycin [Zithromax] 250 mg tablet 250 mg PO UD DOSE PK Qty: 6 0RF Rx Instructions: Take two (2) tablets today, then one (1) tablet days #2 thru #5 [id number] [Bromfed DM] 2-30-10 mg/5 mL Syrup 5 ml PO Q6H PRN (Reason: Cough) Qty: 240 0RF methylprednisolone 4 mg Tablets,Dose Pack 4 mg PO DIRECTED Qty: 21 0RF oseltamivir [Tamiflu] 75 mg capsule 75 mg PO BID Qty: 10 0RF No Action albuterol sulfate [ProAir HFA] 90 mcg/actuation HFA aerosol inhaler 2 inh IH DAILYP PRN (Reason: Shortness Of Breath) cyclobenzaprine 10 mg tablet 10 mg PO Q8H PRN (Reason: muscle spasm) Qty: 30 0RF tramadol 50 mg tablet 50 mg PO BID PRN (Reason: pain) Qty: 20 0RF sucralfate [Carafate] 1 gram tablet 1 gm PO QACHS Qty: 120 3RF gabapentin 100 mg capsule 200 mg PO BID PRN (Reason: pain) Qty: 60 0RF cefdinir 300 mg capsule 300 mg PO BID 7 Days Qty: 14 0RF lidocaine 0.05 MG/MG adhesive patch,medicated 1 patch TP DAILY Rx Instructions: leave on most painful area for up to 12 hrs fluticasone furoate-vilanterol 1 EACH blister with device 1 inh IH Q24H Rx Instructions: after inhalation, rinse mouth with water and spit out; do not swallow famotidine 40 MG tablet 40 mg PO DAILY omeprazole 40 MG capsule,delayed release(DR/EC) 40 mg PO BID Rx Instructions: swallow whole; do not crush, chew, dissolve, cut, break montelukast 10 MG tablet 10 mg PO QDAY loratadine 10 MG tablet 10 mg PO DAILY Referrals Follow up/Referrals: Loida Daniels PA [Primary Care Provider] - See instructions Activity Restrictions/Add. Instructions Additional Instructions/Restrictions: Drink plenty of fluids. Take tylenol or ibuprofen for pain or fever. Take the medications as directed. Follow up with your regular doctor. GO TO THE ER FOR ANY WORSENING SYMPTOMS Clinical Impressions Clinical Impression: Asthma, Acute viral syndrome, Pharyngitis Stand Alone Forms Stand Alone Forms: Work/School Release Instructions Patient Instructions: DI for Strep Throat, DI for Influenza -- Adult Discharge ED Provider: Kyle Mehta [facility] [place] HPI General Stated complaint: Sore throat, cough, headache, nausea Time Seen by Provider: 01/25/22 09:35 History of Present Illness Provider Complaint: He states that for the past 1 day he has had chills, body aches, fever, sore throat and a dry cough. Related Data Home Medications Medication Instructions Recorded Confirmed albuterol sulfate 90 mcg/actuation 2 inh inhalation DAILYP PRN 03/16/21 12/19/21 aerosol inhaler (ProAir HFA) Shortness Of Breath fluticasone furoate 200 1 inh inhalation Q24H . 04/21/21 12/19/21 mcg-vilanterol 25 mcg/dose inhalation powder lidocaine 5 % topical patch 1 patch topical DAILY pain 04/21/21 12/19/21 famotidine 40 mg tablet 40 mg PO DAILY GERD 09/02/21 12/19/21 loratadine 10 mg tablet 10 mg PO DAILY Allergy symptoms 09/02/21 12/19/21 montelukast 10 mg tablet 10 mg PO QDAY Allergy symptoms 09/02/21 12/19/21 omeprazole 40 mg capsule,delayed 40 mg PO BID GERD 09/02/21 12/19/21 release Previous Rx's Medication Instructions Recorded cyclobenzaprine 10 mg tablet 10 mg PO Q8H PRN muscle spasm #30 04/20/21 tabs tramadol 50 mg tablet 50 mg PO BID PRN pain #20 tabs 04/20/21 sucralfate 1 gram tablet (Carafate) 1 gm PO QACHS #120 tabs 09/27/21 gabapentin 100 mg capsule 200 mg PO BID PRN pain #60 caps 12/06/21 cefdinir 300 mg capsule 300 mg PO BID 7 days #14 caps 12/20/21 azithromycin 250 mg tablet 250 mg PO UD DOSE PK #6 tabs 01/25/22 (Zithromax) [id number]-[id number]-BM 5 ml PO Q6H PRN Cough #240 mL 01/25/22 2 mg-30 mg-10 mg/5 mL oral syrup (Bromfed DM) methylprednisolone 4 mg tablets in 4 mg PO DIRECTED #21 t
[2022-01-25 09:49] VITALS: BP 130/83; PULSE 94; RESP 18; TEMP 37.4; O2SAT 99; BMI 25.7
[2022-01-25 10:18] VITALS: BP 130/83; PULSE 94; RESP 18; TEMP 37.4
[2022-01-25 11:32] LABS: Coronavirus 19, PCR Not Detected (NotDetected); Influenza A, PCR Not Detected (NotDetected); Influenza B, PCR Not Detected (NotDetected)
[2022-01-26 19:06] LABS: UTC Strep Screen (Rapid) Positive (Negative)
== END 2022-01-25 10:26 | disposition home or self-care (01) ==
PROVIDERS: Emergency Provider Nurse Practitioner Family; PCP Physician Assistant
DX: J02.0 Streptococcal pharyngitis (principal); B95.0 Streptococcus, group A, as the cause of diseases classified elsewhere; R06.02 Shortness of breath; R50.9 Fever, unspecified; R11.0 Nausea; R05.9 Cough, unspecified; R51.9 Headache, unspecified; K21.9 Gastro-esophageal reflux disease without esophagitis; M54.16 Radiculopathy, lumbar region; M51.36 Other intervertebral disc degeneration, lumbar region; M47.896 Other spondylosis, lumbar region; J45.909 Unspecified asthma, uncomplicated; Z79.1 Long term (current) use of non-steroidal anti-inflammatories (NSAID); F17.210 Nicotine dependence, cigarettes, uncomplicated; Z79.51 Long term (current) use of inhaled steroids; Z79.899 Other long term (current) drug therapy; Z20.822 Contact with and (suspected) exposure to COVID-19
CPT/HCPCS: 87880; 99213; C9803; G0463; U0003; U0005

== ENCOUNTER → 2022-02-23 15:00 | Outpatient (CLI) | payer OTHER, SELFPAY ==
[2022-02-23 18:30] LABS: Basophils # 0.1 K/mm3 (0-0.2); Basophils % 1.1 % (0.1-2.0); Eosinophils # 0.3 K/mm3 (0.0-0.4); Eosinophils % 2.9 % (0.1-12.0); Hematocrit 52.1 % (42.0-52.0); Hemoglobin 16.2 g/dL (14.1-18.0); Lymphocytes # 1.6 K/mm3 (0.7-4.5); Lymphocytes % 16.9 % (10-50); Mean Corpuscular HGB Conc 31.1 g/dL (31.8-35.4); Mean Corpuscular Hemoglobin 28.2 pg (27.0-31.2); Mean Corpuscular Volume 90.9 fl (80-94); Mean Platelet Volume 9.1 fl (7.4-10.4); Monocytes # 0.5 K/mm3 (0.1-1.0); Monocytes % 5.2 % (1.7-9.3); Neutrophils # 6.9 K/mm3 (1.8-7.8); Neutrophils % 73.9 % (37.0-80.0); Platelet Count 398 K/mm3 (142-424); Red Blood Count 5.73 M/mm3 (4.60-6.20); Red Cell Distribution Width 14.1 % (11.5-17.5); White Blood Count 9.3 K/mm3 (4.8-10.8)
[2022-02-23 18:41] LABS: Alanine Aminotransferase 22 U/L (12-78); Albumin Level 4.8 g/dl (3.5-5.0); Albumin/Globulin Ratio 1.3 (1.1-1.8); Alkaline Phosphatase 89 U/L (38-126); Amylase 54 U/L (30-110); Anion Gap 16.2 mEq/L (5-15); Aspartate Amino Transferase 31 U/L (17-59); Bilirubin,Total 0.9 mg/dl (0.2-1.3); Blood Urea Nitrogen 11 mg/dl (9-20); Calcium 9.4 mg/dl (8.4-10.2); Carbon Dioxide 28 mmol/L (22.0-30.0); Chloride 100 mmol/L (98-107); Cholesterol 217 mg/dl (140-200); Estimated Glomerular Filt Rate 128 ml/min (>60); GFR (African American) 155 ML/MIN (>60); Globulin 3.8 g/dL (1.3-3.2); Glucose 80 mg/dl (74-100); HDL Cholesterol 43 mg/dl (40-60); Lipase 66 U/L (23-300); Potassium 4.2 mmoL/L (3.5-5.1); Sodium 140 mmol/L (136-145); Total Protein,Serum 8.6 g/dl (6.3-8.2); Triglycerides 156 mg/dl (30-150); VLDL Cholesterol 31 mg/dL (0-40)
[2022-02-23 18:53] LABS: Direct LDL Cholesterol 132.31 mg/dL (100-129)
[2022-02-23 19:12] LABS: Thyroid Stimulating Hormone 0.93 uIU/mL (0.465-4.68)
[2022-02-23 19:36] LABS: Hemoglobin A1C 5.3 % (4.0-6.0)
[2022-02-25 18:06] LABS: H. pylori Breath Test Negative (Negative)
== END ==
PROVIDERS: PCP Physician Assistant; Visit Provider Student in an Organized Health Care Education/Training Program
DX: R11.2 Nausea with vomiting, unspecified (principal); J02.0 Streptococcal pharyngitis; B95.4 Other streptococcus as the cause of diseases classified elsewhere
CPT/HCPCS: 80053; 80061; 82150; 83013; 83036; 83690; 84443; 85025; 87070; 87077; 87186

== ENCOUNTER → 2022-03-09 06:20 | Outpatient (CLI) | payer OTHER, SELFPAY | PROVIDERS: PCP Student in an Organized Health Care Education/Training Program; Visit Provider Student in an Organized Health Care Education/Training Program | DX: R11.2 Nausea with vomiting, unspecified (principal) | CPT/HCPCS: C9803; U0003; U0005 ==

== ENCOUNTER → 2022-03-14 08:43 | Outpatient (CLI) | payer OTHER, SELFPAY ==
[2022-03-14 19:25] LABS: Alanine Aminotransferase 26 U/L (12-78); Albumin/Globulin Ratio 1.3 (1.1-1.8); Alkaline Phosphatase 96 U/L (38-126); Aspartate Amino Transferase 30 U/L (17-59); Bilirubin,Total 0.6 mg/dl (0.2-1.3); Blood Urea Nitrogen 9 mg/dl (9-20); Calcium 9.5 mg/dl (8.4-10.2); Carbon Dioxide 28 mmol/L (22.0-30.0); Chloride 100 mmol/L (98-107); Estimated Glomerular Filt Rate 128 ml/min (>60); GFR (African American) 155 ML/MIN (>60); Globulin 3.8 g/dL (1.3-3.2); Glucose 94 mg/dl (74-100); Sodium 139 mmol/L (136-145); Total Protein,Serum 8.8 g/dl (6.3-8.2)
[2022-03-14 19:27] LABS: Monoscreen (Rapid) Negative (Negative)
[2022-03-14 19:29] LABS: Basophils # 0.1 K/mm3 (0-0.2); Basophils % 0.6 % (0.1-2.0); Eosinophils # 0.2 K/mm3 (0.0-0.4); Eosinophils % 1.7 % (0.1-12.0); Hematocrit 43.9 % (42.0-52.0); Hemoglobin 15.8 g/dL (14.1-18.0); Lymphocytes # 1.2 K/mm3 (0.7-4.5); Lymphocytes % 12.3 % (10-50); Mean Corpuscular HGB Conc 36.1 g/dL (31.8-35.4); Mean Corpuscular Hemoglobin 31.1 pg (27.0-31.2); Mean Corpuscular Volume 86.2 fl (80-94); Mean Platelet Volume 9.2 fl (7.4-10.4); Monocytes # 0.7 K/mm3 (0.1-1.0); Monocytes % 7.2 % (1.7-9.3); Neutrophils % 78.3 % (37.0-80.0); Platelet Count 355 K/mm3 (142-424); Red Blood Count 5.09 M/mm3 (4.60-6.20); White Blood Count 10.2 K/mm3 (4.8-10.8)
[2022-03-14 19:40] LABS: Anion Gap 15.2 mEq/L (5-15); Potassium 4.2 mmoL/L (3.5-5.1)
[2022-03-14 19:42] LABS: 25-OH Vitamin D, Total 24.4 ng/mL (30-100)
[2022-03-14 19:56] LABS: Thyroid Stimulating Hormone 1.23 uIU/mL (0.465-4.68)
[2022-03-16 12:11] LABS: EBV Ab VCA, IgG >600.0 U/mL (0.0-17.9); EBV Ab VCA, IgM <36.0 U/mL (0.0-35.9); EBV Nuclear Antigen Ab, IgG >600.0 U/mL (0.0-17.9)
== END ==
PROVIDERS: PCP Physician Assistant; Visit Provider Physician Assistant
DX: J03.01 Acute recurrent streptococcal tonsillitis (principal); E55.9 Vitamin D deficiency, unspecified
CPT/HCPCS: 80053; 82306; 84443; 85025; 86318; 86664; 86665; 87070

== ENCOUNTER → 2022-03-23 07:49 | Outpatient (CLI) | payer OTHER, SELFPAY ==
--- NOTE | 2022-03-23 07:49 | CT_ITS ---
FINAL REPORT TECHNIQUE: Axial images through the abdomen and pelvis were performed without contrast. This study was performed with techniques to keep radiation doses as low as reasonably achievable, (ALARA). Individualized dose reduction techniques using automated exposure control or adjustment of mA and/or kV according to the patient's size were employed. CLINICAL HISTORY: abd pain, NV, chronic gastritis COMPARISON: 07/07/2021 FINDINGS: Abdomen: The lung bases are clear. The liver is mildly enlarged and homogeneous. The gallbladder is present. The spleen, pancreas, adrenals and kidneys are unremarkable. Pelvis: The urinary bladder is unremarkable. The appendix is unremarkable. There is no pelvic mass or inflammation. IMPRESSION: Mild hepatomegaly. Otherwise unremarkable exam. Reviewed, Interpreted and Dictated by Timo Myers MD Transcribed by Roxy Crowe Authenticated and [facility]
== END ==
PROVIDERS: PCP Physician Assistant; Visit Provider Student in an Organized Health Care Education/Training Program
DX: R10.9 Unspecified abdominal pain (principal)
CPT/HCPCS: 74176

== ENCOUNTER → 2022-03-24 07:49 | Outpatient (CLI) | payer OTHER, SELFPAY ==
--- NOTE | 2022-03-24 07:53 | FL_ITS ---
FINAL REPORT CLINICAL HISTORY: . nausea, vomiting 1:29 fluoro time FINDINGS: UPPER GI EXAM HISTORY: Abdominal pain, nausea. PROCEDURE: The patient ingested barium. Effervescent crystals were also administered. Spot and overhead films were obtained. FINDINGS: The preliminary clinical quality rn film demonstrates a moderate amount of stool throughout the colon. The esophagus is normal. There is no hiatal hernia. There is no gastroesophageal reflux but the patient continuously vomited ingested barium. Peristalsis is normal. There are mildly prominent gastric folds which may be due to nondistention but mild gastritis is not excluded. The duodenal bulb is normal. The patient was unable to drink enough barium for a small bowel follow-through study. FLUOROSCOPY TIME: 1.3 minutes IMPRESSION: The patient experienced vomiting throughout the exam. The exam is unremarkable except for mildly prominent gastric folds which may be due to nondistention or mild gastritis. Films reviewed , interpreted and dictated by Dr. Myers. Transcribed by Orlando Edmonds PA-C. Reviewed, Interpreted and Dictated by Timo Myers MD Transcribed by ZULLY Calvillo Authenticated and [facility]
== END ==
PROVIDERS: PCP Physician Assistant; Visit Provider Physician Assistant
DX: K21.00 Gastro-esophageal reflux disease with esophagitis, without bleeding (principal); R10.9 Unspecified abdominal pain; R11.10 Vomiting, unspecified
CPT/HCPCS: 74246

== ENCOUNTER 2022-05-31 17:30 | Outpatient (RCR) | payer OTHER, SELFPAY ==
--- NOTE | 2022-04-21 17:38 | HMH.PTOPEV ---
PT Outpatient Evaluation Rehab PT Outpatient Evaluation Start: 04/21/22 16:54 Freq: Status: Active Protocol: Document 04/21/22 17:25 CHARLETTE (Rec: 04/21/22 17:38 CHARLETTE [id number]) E-signed By Tom Evans, PT Outpatient Therapy Subjective History Subjective History Patient is a 36 year old male presenting to outpatient PT with reports of chronic LBP with LLE radicular symptoms. Most recent imaging indicates lumbar disc bulge. Patient injured LS while moving furniture. 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 Chief Complaint Pain Symptom Type Ache,Numbness,Tingling Symptoms Relieved By Heat,Prescription Meds Symptoms Aggravated By Standing,Bending/Stooping, Physical Activity,Walking, Lifting Prior Functional Limitations None Current Functional Limitations Lifting,Standing,Walking, Bending/Stooping Symptom Description Intermittent Level of pain today (0-10) 3 Pain scale - at its best (0-10) 0 Pain scale - at its worst (0-10) 6 Lumbopelvic Eval Posture Thoracic Spine Posture Standing Position Neutral Lumbar Spine Posture Standing Position Neutral Assistive device Assistive Devices None / NA Palapation tenderness left buttock tenderness Yes: 2/4 Lumbar/Sacral Palpation Findings Tenderness Accessory Movement L4 bilateral L5 bilateral S1 bilateral Range of Motion Lumbar Spine Active Flexion Range of 68 Motion (degrees) Lumbar Spine Active Extension Range of WNL Motion (degrees) Left Lumbar Spine Lateral Flexion Active WNL Range of Motion (degrees) Right Lumbar Spine Lateral Flexion WNL Active Range of Motion (degrees) Lumbar Spine ROM Limitations Soft Tissue Tightness Manual Muscle Test Bilateral Knee Extension Strength Grade 5 Normal Knee Flexion Strength Grade 5 Normal Hip Flexion Strength Grade 5 Normal Extensor Hallucis Longus Strength Grade 5 Normal Ankle Dorsiflexion Strength Grade 5 Normal Gastronemius/Soleus Strength Grade 5 Normal Altered Sensation Left LE Dermatome Level L5,S1 Comment NT dull pain Special Tests Hip Pa (WILFRED) Test Positive Left,Positive Right Hip Van Test Positive Left,Positive Right Hip Piriformis
--- NOTE | 2022-05-31 17:21 | HMH.RHREAS ---
Rehab Reassessment Rehab OP Re-assessment Start: 05/31/22 17:09 Freq: Status: Active Protocol: Document 05/31/22 17:10 CHARLETTE (Rec: 05/31/22 17:18 CHARLETTE [id number]) E-signed By Tom Evans, PT Rehab Re-assessment Subjective Subjective Patient reports 75% improvements since start of care. Objective Objective Notes AROM: WNL except for LS flx 60 deg BLE MMT: WNL Neuro: intermittent radicular system to L5/S1 dermatomes Pain: today 1/10; worst 7/10 at worst over past week. Assessment Progress Assessment Progressing as Expected Assessment Notes Patient progressing well as noted above. Patient would benefit from continuing with skilled PT services in order to progress difficulty of core stabilization exercises to provide relief with prolonged standing activities. Patient goals met STG 2 Goals Not Met All others involving prolonged standing activities. Revised Goals NA Plan Plan Continue with current POC. Frequency of Therapy 2 days/week Duration of therapy 4 weeks Time and Billing Re-Eval Time 15 Re-Eval Billing Units 1 PHYSICIAN CERTIFICATION: I certify the specified therapy services for Kapil Mcrae are required, authorized, and reviewed every 30 days.
== END 2022-05-31 17:35 | disposition home or self-care (01) ==
LOC: PT 17:30
PROVIDERS: PCP Physician Assistant; Visit Provider Student in an Organized Health Care Education/Training Program
DX: M47.816 Spondylosis without myelopathy or radiculopathy, lumbar region (principal)
CPT/HCPCS: 97010; 97012; 97014; 97110; 97140; 97163; 97164; 97530; G0283

== ENCOUNTER → 2022-09-15 23:22 | Outpatient (CLI) | payer OTHER, SELFPAY | PROVIDERS: PCP Student in an Organized Health Care Education/Training Program; Visit Provider Student in an Organized Health Care Education/Training Program | DX: R11.0 Nausea (principal) ==

== ENCOUNTER → 2022-11-16 01:42 | Outpatient (CLI) | payer OTHER, SELFPAY ==
[2022-11-15 15:18] LABS: Basophils # 0.1 K/mm3 (0-0.2); Basophils % 0.7 % (0.1-2.0); Eosinophils # 0.4 K/mm3 (0.0-0.4); Eosinophils % 3.6 % (0.1-12.0); Hematocrit 51.2 % (42.0-52.0); Hemoglobin 16.3 g/dL (14.1-18.0); Lymphocytes # 1.5 K/mm3 (0.7-4.5); Lymphocytes % 14.3 % (10-50); Mean Corpuscular HGB Conc 31.8 g/dL (31.8-35.4); Mean Corpuscular Hemoglobin 28.1 pg (27.0-31.2); Mean Corpuscular Volume 88.2 fl (80-94); Mean Platelet Volume 9.1 fl (7.4-10.4); Monocytes # 0.7 K/mm3 (0.1-1.0); Monocytes % 7.1 % (1.7-9.3); Neutrophils # 7.5 K/mm3 (1.8-7.8); Neutrophils % 74.2 % (37.0-80.0); Platelet Count 353 K/mm3 (142-424); Red Blood Count 5.81 M/mm3 (4.60-6.20); Red Cell Distribution Width 13.9 % (11.5-17.5); White Blood Count 10.1 K/mm3 (4.8-10.8)
[2022-11-15 15:24] LABS: Alanine Aminotransferase 41 U/L (12-78); Albumin Level 4.8 g/dl (3.5-5.0); Albumin/Globulin Ratio 1.2 (1.1-1.8); Alkaline Phosphatase 91 U/L (38-126); Anion Gap 15.4 mEq/L (5-15); Aspartate Amino Transferase 34 U/L (17-59); Bilirubin,Total 0.4 mg/dl (0.2-1.3); Blood Urea Nitrogen 11 mg/dl (9-20); Calcium 9.6 mg/dl (8.4-10.2); Carbon Dioxide 30 mmol/L (22.0-30.0); Chloride 100 mmol/L (98-107); Estimated Glomerular Filt Rate 109 ml/min (>60); GFR (African American) 132 ML/MIN (>60); Globulin 4.1 g/dL (1.3-3.2); Glucose 92 mg/dl (74-100); Potassium 4.4 mmoL/L (3.5-5.1); Sodium 141 mmol/L (136-145); Total Protein,Serum 8.9 g/dl (6.3-8.2)
[2022-11-15 16:57] LABS: 25-OH Vitamin D, Total 38.3 ng/mL (30-100)
== END ==
PROVIDERS: PCP Physician Assistant; Visit Provider Internal Medicine
DX: Z00.00 Encounter for general adult medical examination without abnormal findings (principal); Z79.899 Other long term (current) drug therapy
CPT/HCPCS: 80053; 82306; 85025

== ENCOUNTER 2022-11-23 02:19 | Emergency (ER) | payer OTHER, SELFPAY ==
[2022-11-23 02:21] VITALS: BP 124/77; PULSE 117; RESP 14; TEMP 38.3; O2SAT 96; BMI 27.0
[2022-11-23 02:37] LABS: Coronavirus 19, PCR Not Detected (NotDetected); Influenza A, PCR Not Detected (NotDetected); Influenza B, PCR Not Detected (NotDetected)
[2022-11-23 02:45] LABS: Strep Scrn Group A (Rapid) Negative (Negative)
--- NOTE | 2022-11-23 02:50 | HMH.EDGENADL ---
Discharge Plan Disposition Patient Disposition: Home, Self-Care Chief Complaint: Upper Respiratory Infection Prescriptions Prescriptions: No Action albuterol sulfate [ProAir HFA] 90 mcg/actuation HFA aerosol inhaler 2 inh IH DAILYP PRN (Reason: Shortness Of Breath) promethazine 12.5 mg tablet 12.5 mg PO BID Qty: 20 0RF famotidine 40 mg tablet 40 mg PO DAILY Qty: 90 2RF fluticasone furoate-vilanterol [Breo Ellipta] 200-25 mcg/dose blister with device See Rx Instructions .ROUTE .COMPLEX Qty: 60 0RF Dose Instruction: INHALE 1 PUFF BY MOUTH ONCE A DAY. RINSE MOUTH AND SPIT AFTER USE, DO NOT SWALLOW Rx Instructions: INHALE 1 PUFF BY MOUTH ONCE A DAY. RINSE MOUTH AND SPIT AFTER USE, DO NOT SWALLOW loratadine 10 mg tablet See Rx Instructions .ROUTE .COMPLEX Qty: 30 2RF Dose Instruction: TAKE ONE TABLET BY MOUTH ONCE A DAY FOR ALLERGY SYMPTOMS Rx Instructions: TAKE ONE TABLET BY MOUTH ONCE A DAY FOR ALLERGY SYMPTOMS pantoprazole 40 mg tablet,delayed release (DR/EC) See Rx Instructions .ROUTE .COMPLEX Qty: 30 2RF Dose Instruction: TAKE ONE TABLET BY MOUTH ONCE A DAY Rx Instructions: TAKE ONE TABLET BY MOUTH ONCE A DAY gabapentin 100 mg capsule 200 mg PO BID 30 Days Qty: 120 1RF cholecalciferol (vitamin D3) 50 mcg (2,000 unit) capsule 50 mcg PO DAILY Qty: 90 3RF montelukast 10 mg tablet See Rx Instructions .ROUTE .COMPLEX Qty: 90 3RF Dose Instruction: TAKE ONE TABLET BY MOUTH ONCE A DAY FOR ALLERGY SYMPTOMS Rx Instructions: TAKE ONE TABLET BY MOUTH ONCE A DAY FOR ALLERGY SYMPTOMS (DME) BinaxNOW [employer] Ag Card Home Tst Kit See Rx Instructions .Route Qty: 4 0RF Rx Instructions: As directed Referrals Follow up/Referrals: Loida Daniels PA [Primary Care Provider] - See instructions Clinical Impressions Clinical Impression: Acute viral syndrome Discharge ED Provider: Eugene Walsh Adult HPI General Chief complaint: Upper Respiratory Infection Stated complaint: Fever,IRIZARRY Time Seen by Provider: 11/23/22 02:30 Mode of Arrival: Ambulatory Source of Information: Patient Limitations: No Limitations Description of Symptoms (Recalled from ER Triage Doc. by RN): pt reports, slept all day yesterday, has a fever, cough, IRIZARRY and Sore throat, last dose of Tylenol at 2100 History of Present Illness HPI narrative: 37-year-old male, history of asthma, presents with 2 days of fever, intermittent headache, sore throat, cough. Cough is nonproductive. Patient does not feel like his asthma is exacerbated. Patient reports frequent strep throat infections. Denies any chest pain abdominal pain. Denies any neurologic symptoms. Has been taking Tylenol at home for fever and pain. Orts recent COVID exposures. Related Data Home Medications Medication Instructions Recorded Confirmed albuterol sulfate 90 mcg/actuation 2 inh inhalation DAILYP PRN 03/16/21 11/15/22 aerosol inhaler (ProAir HFA) Shortness Of Breath Previous Rx's Medication Instructions Recorded cholecalciferol (vitamin D3) 50 50 mcg PO DAILY #90 caps 03/15/22 mcg (2,000 unit) capsule montelukast 10 mg tablet See Rx Instructions .Route 08/24/22 .COMPLEX #90 tabs promethazine 12.5 mg tablet 12.5 mg PO BID #20 tabs 09/15/22 COVID-19 antigen test (BinaxNOW #4 ea 11/01/22 COVID-19 Ag Card Home Test kit) famotidine 40 mg tablet 40 mg PO DAILY GERD #90 tabs 11/15/22 fluticasone furoate 200 See Rx Instructions .Route 11/15/22 mcg-vilanterol 25 mcg/dose .COMPLEX #60 ea inhalation powder (Breo Ellipta) loratadine 10 mg tablet See Rx Instructions .Route 11/15/22 .COMPLEX #30 tabs pantoprazole 40 mg tablet,delayed See Rx Instructions .Route 11/15/22 release .COMPLEX #30 tabs gabapentin 100 mg capsule 200 mg PO BID 30 days #120 caps 11/20/22 Allergies Allergy/AdvReac Type Severity Reaction Status Date / Time No Known Allergies Allergy Verif
[2022-11-23 03:55] VITALS: BP 118/78; PULSE 103; RESP 16; TEMP 38.1; O2SAT 98
== END 2022-11-23 03:56 | disposition home or self-care (01) ==
PROVIDERS: Emergency Provider Emergency Medicine; PCP Physician Assistant
DX: R51.9 Headache, unspecified (principal); R50.9 Fever, unspecified; R05.9 Cough, unspecified; B34.9 Viral infection, unspecified
CPT/HCPCS: 87430; 87636; 99283

== ENCOUNTER → 2022-11-24 23:35 | Outpatient (CLI) | payer OTHER, SELFPAY | PROVIDERS: PCP Physician Assistant; Visit Provider Student in an Organized Health Care Education/Training Program | DX: J02.9 Acute pharyngitis, unspecified (principal); B95.1 Streptococcus, group B, as the cause of diseases classified elsewhere | CPT/HCPCS: 87070 ==

== ENCOUNTER 2023-01-04 07:55 | Emergency (ER) | payer OTHER, SELFPAY ==
[2023-01-04] VITALS (7 sets, daily range): BP systolic 130–143; BP diastolic 88–99; PULSE 90–102; RESP 16; TEMP 36.9; O2SAT 95–99; BMI 27.5
--- NOTE | 2023-01-04 08:16 | HMH.EDGENADL ---
Discharge Plan Disposition Patient Disposition: Home, Self-Care Condition: Good Prescriptions Prescriptions: New amoxicillin 500 mg capsule 500 mg PO BID 10 Days Qty: 20 0RF No Action albuterol sulfate [ProAir HFA] 90 mcg/actuation HFA aerosol inhaler 2 inh IH DAILYP PRN (Reason: Shortness Of Breath) promethazine 12.5 mg tablet 12.5 mg PO BID Qty: 20 0RF famotidine 40 mg tablet 40 mg PO DAILY Qty: 90 2RF fluticasone furoate-vilanterol [Breo Ellipta] 200-25 mcg/dose blister with device See Rx Instructions .ROUTE .COMPLEX Qty: 60 0RF Dose Instruction: INHALE 1 PUFF BY MOUTH ONCE A DAY. RINSE MOUTH AND SPIT AFTER USE, DO NOT SWALLOW Rx Instructions: INHALE 1 PUFF BY MOUTH ONCE A DAY. RINSE MOUTH AND SPIT AFTER USE, DO NOT SWALLOW loratadine 10 mg tablet See Rx Instructions .ROUTE .COMPLEX Qty: 30 2RF Dose Instruction: TAKE ONE TABLET BY MOUTH ONCE A DAY FOR ALLERGY SYMPTOMS Rx Instructions: TAKE ONE TABLET BY MOUTH ONCE A DAY FOR ALLERGY SYMPTOMS pantoprazole 40 mg tablet,delayed release (DR/EC) See Rx Instructions .ROUTE .COMPLEX Qty: 30 2RF Dose Instruction: TAKE ONE TABLET BY MOUTH ONCE A DAY Rx Instructions: TAKE ONE TABLET BY MOUTH ONCE A DAY gabapentin 100 mg capsule 200 mg PO BID 30 Days Qty: 120 1RF cholecalciferol (vitamin D3) 50 mcg (2,000 unit) capsule 50 mcg PO DAILY Qty: 90 3RF montelukast 10 mg tablet See Rx Instructions .ROUTE .COMPLEX Qty: 90 3RF Dose Instruction: TAKE ONE TABLET BY MOUTH ONCE A DAY FOR ALLERGY SYMPTOMS Rx Instructions: TAKE ONE TABLET BY MOUTH ONCE A DAY FOR ALLERGY SYMPTOMS (DME) [employer] Card Home Tst Kit See Rx Instructions .Route Qty: 4 0RF Rx Instructions: As directed amoxicillin 875 mg tablet 875 mg PO BID Qty: 20 0RF Referrals Follow up/Referrals: Loida Daniels PA [Primary Care Provider] - See instructions Activity Restrictions/Add. Instructions Additional Instructions/Restrictions: You were evaluated in the emergency department today. 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 Please take Tylenol and ibuprofen every 4-6 hours as needed for pain. Hydrate is much as possible. Return to the emergency department for new or worsening symptoms. Clinical Impressions Clinical Impression: Strep pharyngitis Instructions Patient Instructions: DI for Strep Throat Discharge ED Provider: Fouzia Ryan General Adult HPI General Chief complaint: Upper Respiratory Infection Stated complaint: sore throat, cough Time Seen by Provider: 01/04/23 08:03 Mode of Arrival: Ambulatory Source of Information: Patient Limitations: No Limitations Description of Symptoms (Recalled from ER Triage Doc. by RN): Pt reports Sore throat x2 days, chills, dry cough, states no known fever. History of Present Illness HPI narrative: This patient is a 37-year-old male with a history of cannabinoid hyperemesis syndrome presenting to the emergency department for evaluation with concern for sore throat and dry cough. He states that this is been going on for a few days now. No medications taken at home prior to arrival. No other concerns, such as chest pain, shortness of breath, abdominal pain, nausea, vomiting, or other issues. He has otherwise been well. Related Data Home Medications Medication Instructions Recorded Confirmed albuterol sulfate 90 mcg/actuation 2 inh inhalation DAILYP PRN 03/16/21 11/24/22 aerosol inhaler (ProAir HFA) Shortness Of Breath Previous Rx's Medication Instructions Recorded cholecalciferol (vitamin D3) 50 50 mcg PO DAILY #90 caps 03/15/22 mcg (2,000 unit) capsule montelukast 10 mg tablet See Rx Instructions .Route 08/24/22 .COMPLEX #90 tabs promethazine 12.5 mg tablet 12.5 mg PO BID #20 tabs 09/15/22 COVID-19 antigen test (BinaxNOW #4 ea 11/01/22 COVID-19 Ag Card Home Test kit)
[2023-01-04 08:23] LABS: Coronavirus 19, PCR Not Detected (NotDetected); Influenza A, PCR Not Detected (NotDetected); Influenza B, PCR Not Detected (NotDetected)
[2023-01-04 08:46] LABS: Strep Scrn Group A (Rapid) Positive (Negative)
--- NOTE | 2023-01-04 09:01 | PC.NURSE ---
DR WINTER AT BEDSIDE TO UPDATE PT
== END 2023-01-04 09:30 | disposition home or self-care (01) ==
PROVIDERS: Emergency Provider Emergency Medicine; PCP Physician Assistant
DX: J02.0 Streptococcal pharyngitis (principal); R05.9 Cough, unspecified; F17.210 Nicotine dependence, cigarettes, uncomplicated
CPT/HCPCS: 87430; 87636; 96372; 99284; J0561

== ENCOUNTER → 2023-01-25 23:13 | Outpatient (CLI) | payer BC, SELFPAY ==
[2023-01-25 18:00] LABS: Coronavirus 19, PCR Not Detected (NotDetected); Influenza A, PCR Not Detected (NotDetected)
[2023-01-25 20:25] LABS: Influenza B, PCR Detected (NotDetected)
== END ==
LOC: LAB.DROPOF 23:13
PROVIDERS: PCP Student in an Organized Health Care Education/Training Program; Visit Provider Student in an Organized Health Care Education/Training Program
DX: Z20.822 Contact with and (suspected) exposure to COVID-19 (principal); J02.9 Acute pharyngitis, unspecified; J09.X2 Influenza due to identified novel influenza A virus with other respiratory manifestations
CPT/HCPCS: 87070; 87636

== ENCOUNTER 2023-02-13 23:55 | Emergency (ER) | payer BC, SELFPAY ==
[2023-02-13 23:56] VITALS: BP 134/85; PULSE 108; RESP 18; TEMP 37.1; O2SAT 98; BMI 30.1
[2023-02-14] VITALS: BP 134/85; PULSE 105; RESP 18; O2SAT 98
--- NOTE | 2023-02-14 00:03 | XR_ITS ---
PROCEDURE INFORMATION: Exam: XR Right Foot Exam date and time: 02/14/2023 12:04 AM Age: 37 years old Clinical indication: Pain; Foot; Right; Additional info: R foot pain, R/O osteomyelitis TECHNIQUE: Imaging protocol: Radiologic exam of the right foot. Views: 1 or 2 views. Total images: 2 COMPARISON: No relevant prior studies available. FINDINGS: Bones/joints: No acute fracture or joint dislocation. No concerning bone lesions or calcifications. No cortical erosion or periostitis. Incidental bipartite lateral hallux sesamoid bone. Soft tissues: Unremarkable soft tissues. IMPRESSION: 1. Negative right foot. 2. If continued concern for occult osteomyelitis, recommend follow-up nonemergent MRI.
[2023-02-14 00:16] LABS: Basophils # 0.1 K/mm3 (0-0.2); Basophils % 0.4 % (0.1-2.0); Eosinophils # 0.3 K/mm3 (0.0-0.4); Eosinophils % 1.8 % (0.1-12.0); Hematocrit 46.1 % (42.0-52.0); Hemoglobin 15.6 g/dL (14.1-18.0); Lymphocytes # 1.9 K/mm3 (0.7-4.5); Lymphocytes % 11.8 % (10-50); Mean Corpuscular HGB Conc 33.8 g/dL (31.8-35.4); Mean Corpuscular Hemoglobin 29.2 pg (27.0-31.2); Mean Corpuscular Volume 86.4 fl (80-94); Mean Platelet Volume 8.6 fl (7.4-10.4); Monocytes % 5.9 % (1.7-9.3); Neutrophils # 12.8 K/mm3 (1.8-7.8); Neutrophils % 80.1 % (37.0-80.0); Platelet Count 355 K/mm3 (142-424); Red Blood Count 5.34 M/mm3 (4.60-6.20); Red Cell Distribution Width 14.3 % (11.5-17.5)
[2023-02-14] MEDS: MORPHINE 4MG/ML SYRINGE 4 MG IV (00:16)
[2023-02-14] MEDS: ONDANSETRON 4MG/2ML VIAL 4 MG IV (00:16)
--- NOTE | 2023-02-14 00:17 | ED_ITS ---
Discharge Plan Disposition Patient Disposition: Home, Self-Care Condition: Good Prescriptions Prescriptions: New sulfamethoxazole-trimethoprim [Bactrim DS] 800-160 mg tablet 1 tab PO BID 7 Days Qty: 14 0RF mupirocin 2 % ointment 1 applic topical BID 7 Days Qty: 22 0RF No Action albuterol sulfate [ProAir HFA] 90 mcg/actuation HFA aerosol inhaler 2 inh IH DAILYP PRN (Reason: Shortness Of Breath) famotidine 40 mg tablet 40 mg PO DAILY Qty: 90 2RF fluticasone furoate-vilanterol [Breo Ellipta] 200-25 mcg/dose blister with device See Rx Instructions .ROUTE .COMPLEX Qty: 60 0RF Dose Instruction: INHALE 1 PUFF BY MOUTH ONCE A DAY. RINSE MOUTH AND SPIT AFTER USE, DO NOT SWALLOW Rx Instructions: INHALE 1 PUFF BY MOUTH ONCE A DAY. RINSE MOUTH AND SPIT AFTER USE, DO NOT SWALLOW loratadine 10 mg tablet See Rx Instructions .ROUTE .COMPLEX Qty: 30 2RF Dose Instruction: TAKE ONE TABLET BY MOUTH ONCE A DAY FOR ALLERGY SYMPTOMS Rx Instructions: TAKE ONE TABLET BY MOUTH ONCE A DAY FOR ALLERGY SYMPTOMS pantoprazole 40 mg tablet,delayed release (DR/EC) See Rx Instructions .ROUTE .COMPLEX Qty: 30 2RF Dose Instruction: TAKE ONE TABLET BY MOUTH ONCE A DAY Rx Instructions: TAKE ONE TABLET BY MOUTH ONCE A DAY gabapentin 100 mg capsule 200 mg PO BID 30 Days Qty: 120 1RF cephalexin 500 mg capsule 500 mg PO TID 7 Days Qty: 21 0RF promethazine-DM 6.25-15 mg/5 mL syrup 5 ml PO Q4-6H PRN (Reason: cough) Qty: 118 0RF methylprednisolone 4 mg tablets,dose pack See Rx Instructions PO PER PKG DIR Qty: 21 0RF Rx Instructions: PO PER PKG DIR cholecalciferol (vitamin D3) 50 mcg (2,000 unit) capsule 50 mcg PO DAILY Qty: 90 3RF montelukast 10 mg tablet See Rx Instructions .ROUTE .COMPLEX Qty: 90 3RF Dose Instruction: TAKE ONE TABLET BY MOUTH ONCE A DAY FOR ALLERGY SYMPTOMS Rx Instructions: TAKE ONE TABLET BY MOUTH ONCE A DAY FOR ALLERGY SYMPTOMS (DME) [employer] Home Tst [employer] See Rx Instructions .Route Qty: 4 0RF Rx Instructions: As directed oseltamivir 75 mg capsule 75 mg PO BID 5 Days Qty: 10 0RF mupirocin 2 % ointment 1 applic topical BID Qty: 15 0RF Referrals Follow up/Referrals: Provider,Referral, MD [Primary Care Provider] - See instructions Activity Restrictions/Add. Instructions Additional Instructions/Restrictions: You have been evaluated in the ED for your complaints. You may follow-up with your PCP in the next 3 to 5 days. Please return to ED for any new or worsening symptoms. I have written for prescriptions for Bactrim and mupirocin ointment to assist with your skin infection. Please use these as prescribed. Clinical Impressions Clinical Impression: Cellulitis of foot, right, Wound of right foot Instructions Patient Instructions: Cellulitis Discharge ED Provider: Morris Nieto Adult HPI General Chief complaint: Wound/Laceration Stated complaint: infection in right foot Time Seen by Provider: 02/13/23 23:58 Mode of Arrival: Ambulatory Source of Information: Patient Limitations: No Limitations Description of Symptoms (Recalled from ER Triage Doc. by RN): Pt presents with right foot pain, swelling and redness after scratching the top of of his foot near 4th and 5th metatarsal on Sunday. Denies any fever, nausea or vomiting. History of Present Illness HPI narrative: 37-year-old male with past medical history significant for asthma, GERD, presents today for evaluation concerning right foot infection. Patient states that on Sunday he scratched the top of his foot with his nails near the fourth and fifth digits and has since that time been experiencing pain, redness and swelling over the area. Notes that his symptoms have been worsening. Denies having any fevers, chills, chest pain, shortness breath, nausea vomiting or any other associated symptoms. He does note that he has MRSA. No further complaints. Related Data Home Medications Medication Instructions Recorded Confirmed albuterol sulfate 90 mcg/actuation 2 inh inhalation DAILYP PRN 03/16/21 01/29/23 aerosol inhaler (ProAir HFA) Shortness Of Breath Previous Rx's Medication Instructions Recorded cholecalciferol (vitamin D3) 50 50 mcg PO DAILY #90 caps 03/15/22 mcg (2,000 unit) capsule montelukast 10 mg tablet See Rx Instructions .Route 08/24/22 .COMPLEX #90 tabs COVID-19 antigen test (BinaxNOW #4 ea 11/01/22 COVID-19 Ag Card Home Test kit) famotidine 40 mg tablet 40 mg PO DAILY GERD #90 tabs 11/15/22 fluticasone furoate 200 See Rx Instructions .Route 11/15/22 mcg-vilanterol 25 mcg/dose .COMPLEX #60 ea inhalation powder (Breo Ellipta) loratadine 10 mg tablet See Rx Instructions .Route 11/15/22 .COMPLEX #30 tabs pantoprazole 40 mg tablet,delayed See Rx Instructions .Route 11/15/22 release .COMPLEX #30 tabs gabapentin 100 mg capsule 200 mg PO BID 30 days #120 caps 11/20/22 cephalexin 500 mg capsule 500 mg PO TID 7 days #21 caps 01/25/23 mupirocin 2 % topical ointment 1 applic topical BID #15 grams 01/26/23 oseltamivir 75 mg capsule 75 mg PO BID 5 days #10 caps 01/26/23 methylprednisolone 4 mg tablets in See Rx Instructions PO PER PKG DIR 01/29/23 a dose pack #21 tabs promethazine-DM 6.25 mg-15 mg/5 mL 5 ml PO Q4-6H PRN cough #118 mL 01/29/23 oral syrup mupirocin 2 % topical ointment 1 applic topical BID 7 days #22 02/14/23 grams sulfamethoxazole 800 1 tab PO BID 7 days #14 tabs 02/14/23 mg-trimethoprim 160 mg tablet (Bactrim DS) Allergies Allergy/AdvReac Type Severity Reaction Status Date / Time No Known Allergies Allergy Verified 01/29/23 10:45 [facility] Disclaimer: The information contained in this section may have been updated after the patient was seen, as this information can be updated by other users. 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 Asthma Kapil is on 2 inhalers. The albuterol for as needed exacerbations and the fluticasone vilanterol inhaler on a daily basis. He does use these daily. Additionally he is taking loratadine and montelukast for allergies. Cannabinoid hyperemesis syndrome I think part of Kapil's nausea and vomiting and other issues with his stomach . Is due to the chronic use of marijuana. He may well have a cannabinoid or marijuana hyperemesis syndrome. He is following with GI for this. I would expect this to improve since he has stopped smoking marijuana over time. Cannabis use disorder Kapil has quit marijuana. I congratulated him on this. He has been off this now for 3 weeks. However with his very long history of chronic daily marijuana usage is going to take a while for him to not feel the effects of withdrawal etc. we will continue to support him in this. Chronic back pain Feels that the gabapentin has been very helpful with his pain. He does take the medication 200 mg twice a day sometimes 3 times a day. We will increase this to 3 times a day I just do not see any problem with that. He has clear pain he has clear radicular components and this is hindered his function. Gabapentin does help him to have more function and a better quality of life. Degenerative disc disease, lumbar Elevated cholesterol with elevated triglycerides Kapil has had elevated total cholesterol, total triglycerides, and LDL. These are only mildly elevated. I have suggested to Kapil that he start taking omega-3 in 6 supplements on a daily basis. Studies have shown that these will reduce total cholesterol triglycerides and increase HDL. We will retest his lipid panel fasting in approximately 4 to 8 weeks. Elevated total protein In February just had an elevated total protein and total globulin levels. They were mildly elevated so I am not sure this is a significant finding. We will check a complete metabolic panel today just to make sure these of come back to normal. Environmental and seasonal allergies Chest and is taking montelukast and loratadine for this. We will provide these prescriptions if he needs at this point he does not. Gastroesophageal reflux disease Insomnia Kapil is complaining of insomnia. I do think this is probably related to him stopping his marijuana smoking. I have suggested that he try o [id number] options such as herbal supplements, lavender, and melatonin. He did try melatonin in the past without success but only used it a few days. Melatonin should be used for at least 2 to 4 weeks for any benefit to be seen to reset the sleep-wake cycle. I discussed all this with Kapil. Additionally told him that if [id number] herbals and other preparations do not work that we are certainly happy to consider prescribing him medication. I would expect this to improve over time as he detoxify the system from the chronic marijuana usage. Low back pain radiating to left leg Lumbar radiculopathy Lumbar spondylosis Streptococcal sore throat Surgical History No significant past surgical history Family History Other No significant family history Social History Smoking Status: Current every day smoker tobacco type: cigarettes packs per day: 1 alcohol intake: never substance use type: marijuana current occupational status: employed Travel in the last 8 weeks: Inside the [employer] household members: other housing: house current occupational exposures/hazards: No caffeine: Yes ROS Obtained: Yes All systems reviewed & no additional complaints except as documented Physical Exam General General appearance: alert and in no apparent distress Head Head exam: atraumatic and normocephalic Eye Eye exam: Present normal appearance, PERRL and EOMI ENT ENT exam: Present normal oropharynx and mucous membranes moist Neck Neck exam: Present full ROM; Absent meningismus Respiratory Respiratory exam: Absent respiratory distress, wheezes, stridor or accessory muscle use Cardiovascular Cardiovascular exam: Present normal rhythm Abdominal Exam Abdominal exam: Present soft; Absent distention, tenderness, guarding, rebound o r rigidity Extremities Exam Extremities exam: Present other (There are 2 wounds noted on patient's right foot, 1 wound at the base of the fourth digit and the second wound at the base of the fifth digit. There is associated erythema and swelling with tenderness to palpation. Palpable DP pulses.) Neurological Exam Neurological exam: Present alert, oriented X3 and CN II-XII intact; Absent motor sensory deficit Psychiatric Psychiatric exam: Present normal affect and normal mood Skin Skin exam: Present warm and dry Medical Decision Making Medical Records Medical records reviewed: Yes I reviewed the patient's medical records. Michele Inquiry Pt receiving controlled substance: No Michele was queried for this patient: No Vital Signs: 02/13/23 23:56 02/14/23 00:00 02/14/23 00:31 Temperature 98.7 F Temperature Source Oral Pulse Rate 105 H 104 H Pulse Rate [Left] 108 H Respiratory Rate 18 18 Blood Pressure 134/85 134/85 Blood Pressure [Right Arm] 134/85 Blood Pressure Mean 93 Blood Pressure Mean [Right Arm] 101 Blood Pressure Source [Right Arm] Automatic Cuff Blood Pressure Position [Right Arm] Supine 02 Sat by Pulse Oximetry 98 98 95 Oxygen Delivery Method Room Air Room Air Room Air Lab Data Lab Results 02/14/23 00:07: WBC 16.0 H, RBC 5.34, Hgb 15.6, Hct 46.1, MCV 86.4, MCH 29.2, MCHC 33.8, RDW 14.3, Plt Count 355, MPV 8.6, Neut % (Auto) 80.1 H, Lymph % (Auto) 11.8, Gage % (Auto) 5.9, Eos % (Auto) 1.8, Baso % (Auto) 0.4, Neut # (Auto) 12.8 H, Lymph # (Auto) 1.9, Gage # (Auto) 1.0, Eos # (Auto) 0.3, Baso # (Auto) 0.1, Total Counted 100, Neutrophils % (Manual) 77 H, Lymphocytes % (Manual) 14, Monocytes % (Manual) 6, Eosinophils % (Manual) 3, Platelet Estimate Normal, RBC Morphology Normal, ESR 13, Sodium 138, Potassium 3.8, Chloride 98, Carbon Dioxide 30, Anion Gap 13.8, BUN 14, Creatinine 0.90, Estimated Creat Clear 153, Estimated GFR 95, Est GFR ( Amer) 116, Glucose 103 H, Calcium 9.2, Total Bilirubin 0.8, AST 54, ALT 48, Alkaline Phosphatase 101, C-Reactive Protein 9.4 H 02/14/23 00:07: C-Reactive Protein 9.8 H, Total Protein 9.3 H, Albumin 4.8, Globulin 4.5 H, Albumin/Globulin Ratio 1.1 02/14/23 00:07 02/14/23 00:07 Orders (Tests/Meds): ED MEDICATIONS Generic Name Dose Route Start Last Admin Trade Name Freq PRN Reason Stop Dose Admin Trimethoprim/Sulfamethoxazole 1 each 02/14/23 01:38 Sulfa/Trimethoprim 1 Tablet PO 02/14/23 01:39 ONCE ONE Discontinued Medications Generic Name Dose Route Start Last Admin Trade Name Freq PRN Reason Stop Dose Admin Lactated Ringer's 500 mls @ 999 mls/hr 02/14/23 00:26 02/14/23 00:33 Lactated Ringer's 1000 Ml Bag IV 02/14/23 00:56 Not Given .Q31M ONE Lactated Ringer's 1,000 mls @ 999 mls/hr 02/14/23 00:32 02/14/23 00:33 Lactated Ringer's 1000 Ml Bag IV 02/14/23 01:26 999 mls/hr .Q1H1M ONE Administration Morphine Sulfate 4 mg 02/14/23 00:03 02/14/23 00:16 Morphine 4mg/Ml Syringe IV 02/14/23 00:04 4 mg ONCE ONE Administration Ondansetron HCl 4 mg 02/14/23 00:03 02/14/23 00:16 Ondansetron 4mg/2ml Vial IV 02/14/23 00:04 4 mg ONCE ONE Administration ORDERS Category Date Time Status Foot XR right 2 views [XR foot RT 2V] Stat Exams 02/14/23 00:03 Taken C-Reactive Protein Stat Lab 02/14/23 00:07 Completed CRP [C-Reactive Protein] Stat Lab 02/14/23 00:07 Completed Complete Blood Count Auto Diff Stat Lab 02/14/23 00:07 Completed Comprehensive Metabolic Panel Stat Lab 02/14/23 00:07 Completed Erythrocyte Sedimentation Rate Stat Lab 02/14/23 00:07 Completed Medical Decision Narrative: 37-year-old male with past medical history significant for asthma, GERD, presents today for evaluation concerning right foot infection. Patient states that on Sunday he scratched the top of his foot with his nails near the fourth and fifth digits and has since that time been experiencing pain, redness and swelling over the area. On assessment, the patient was medically stable and in no acute distress. Afebrile. There are 2 wounds noted on patient's right foot, 1 wound at the base of the fourth digit and the second wound at the base of the fifth digit. There is associated erythema and swelling with tenderness to palpation. Palpable DP pulses. Mild tachycardia. Otherwise exam vitals unremarkable. Differential diagnoses include not limited to osteomyelitis, cellulitis, among others. Patient's lab work today remarkable for a WBC of 16. CRP of 9.8. X-ray imaging on my interpretation without any acute bony abnormalities. No signs of osteomyelitis or bony erosive changes. I did give patient a liter of fluids wh ile in the ED. He remained medically stable and in no acute distress on reassessment with pain controlled. I discussed his ED workup results and current plan to discharge with prescription for Bactrim to treat his cellulitis/foot infection. Will also provide him with prescription for mupirocin ointment. Will give him a dose of Bactrim while in the ED. Provided patient with strict return ED precautions and instructions concerning PCP follow-up. He verbalized understanding and agreed with plan. Subsequently discharged home in medically stable and in no acute distress. Critical Care Critical Care Time Critical Care Time: No
[2023-02-14 00:18] LABS: MANUAL DIFFERENTIAL MANUAL DIFFERENTIAL (MANUAL DIFF)
[2023-02-14 00:19] LABS: Chloride 98 mmol/L (98-107); Potassium 3.8 mmoL/L (3.5-5.1); Sodium 138 mmol/L (136-145)
[2023-02-14 00:21] LABS: Blood Urea Nitrogen 14 mg/dl (9-20); Creatinine Clearance Estimated 153 mL/min (50-200); Estimated Glomerular Filt Rate 95 ml/min (>60); GFR (African American) 116 ML/MIN (>60)
[2023-02-14 00:22] LABS: Alanine Aminotransferase 48 U/L (12-78); Albumin Level 4.8 g/dl (3.5-5.0); Albumin/Globulin Ratio 1.1 (1.1-1.8); Alkaline Phosphatase 101 U/L (38-126); Anion Gap 13.8 mEq/L (5-15); Aspartate Amino Transferase 54 U/L (17-59); Bilirubin,Total 0.8 mg/dl (0.2-1.3); Calcium 9.2 mg/dl (8.4-10.2); Carbon Dioxide 30 mmol/L (22.0-30.0); Globulin 4.5 g/dL (1.3-3.2); Glucose 103 mg/dl (74-100); Total Protein,Serum 9.3 g/dl (6.3-8.2)
[2023-02-14 00:27] LABS: C-Reactive Protein 9.4 mg/L (0-4)
[2023-02-14 00:31] VITALS: BP 134/85; PULSE 104; O2SAT 95
[2023-02-14] MEDS: LACTATED RINGERS 1000ML 1,000 ML 999 ML IV (00:33)
[2023-02-14 00:53] LABS: Erythrocyte Sedimentation Rate 13 mm/hr (0-15)
[2023-02-14 00:56] LABS: C-Reactive Protein 9.8 mg/L (0-4)
[2023-02-14 01:30] LABS: Eosinophils % 3 % (0-3); Lymphocytes % 14 % (10-50); Monocytes % 6 % (2-9); Neutrophils % 77 % (42-76); Platelet Estimate Normal; RBC Morphology Normal; Total Cells Counted 100
[2023-02-14 01:46] VITALS: BP 136/72; PULSE 95; RESP 18; TEMP 36.8; O2SAT 97
[2023-02-14] MEDS: SULFA/TRIMETHOPRIM 1 TABLET 1 EACH PO (01:46)
== END 2023-02-14 01:48 | disposition home or self-care (01) ==
PROVIDERS: Emergency Provider Emergency Medicine
DX: L03.115 Cellulitis of right lower limb (principal); S91.301S Unspecified open wound, right foot, sequela; J45.909 Unspecified asthma, uncomplicated; W26.8XXA Contact with other sharp object(s), not elsewhere classified, initial encounter; F17.210 Nicotine dependence, cigarettes, uncomplicated
CPT/HCPCS: 73620; 80053; 85007; 85025; 85651; 86140; 96361; 96374; 96375; 99285; J2405

== ENCOUNTER 2023-02-20 13:53 | Emergency (ER) | payer BC, SELFPAY ==
[2023-02-20 14:05] VITALS: BP 117/73; PULSE 94; RESP 18; TEMP 36.8; O2SAT 96; BMI 30.1
--- NOTE | 2023-02-20 14:34 | ED_ITS ---
Discharge Plan Disposition Patient Disposition: Home, Self-Care Condition: Good Prescriptions Prescriptions: New amoxicillin [amoxicillin] 875 mg tablet 875 mg PO Q12H Qty: 20 0RF No Action albuterol sulfate [ProAir HFA] 90 mcg/actuation HFA aerosol inhaler 2 inh IH DAILYP PRN (Reason: Shortness Of Breath) famotidine 40 mg tablet 40 mg PO DAILY Qty: 90 2RF fluticasone furoate-vilanterol [Breo Ellipta] 200-25 mcg/dose blister with device See Rx Instructions .ROUTE .COMPLEX Qty: 60 0RF Dose Instruction: INHALE 1 PUFF BY MOUTH ONCE A DAY. RINSE MOUTH AND SPIT AFTER USE, DO NOT SWALLOW Rx Instructions: INHALE 1 PUFF BY MOUTH ONCE A DAY. RINSE MOUTH AND SPIT AFTER USE, DO NOT SWALLOW loratadine 10 mg tablet See Rx Instructions .ROUTE .COMPLEX Qty: 30 2RF Dose Instruction: TAKE ONE TABLET BY MOUTH ONCE A DAY FOR ALLERGY SYMPTOMS Rx Instructions: TAKE ONE TABLET BY MOUTH ONCE A DAY FOR ALLERGY SYMPTOMS pantoprazole 40 mg tablet,delayed release (DR/EC) See Rx Instructions .ROUTE .COMPLEX Qty: 30 2RF Dose Instruction: TAKE ONE TABLET BY MOUTH ONCE A DAY Rx Instructions: TAKE ONE TABLET BY MOUTH ONCE A DAY gabapentin 100 mg capsule 200 mg PO BID 30 Days Qty: 120 1RF cephalexin 500 mg capsule 500 mg PO TID 7 Days Qty: 21 0RF promethazine-DM 6.25-15 mg/5 mL syrup 5 ml PO Q4-6H PRN (Reason: cough) Qty: 118 0RF methylprednisolone 4 mg tablets,dose pack See Rx Instructions PO PER PKG DIR Qty: 21 0RF Rx Instructions: PO PER PKG DIR cholecalciferol (vitamin D3) 50 mcg (2,000 unit) capsule 50 mcg PO DAILY Qty: 90 3RF montelukast 10 mg tablet See Rx Instructions .ROUTE .COMPLEX Qty: 90 3RF Dose Instruction: TAKE ONE TABLET BY MOUTH ONCE A DAY FOR ALLERGY SYMPTOMS Rx Instructions: TAKE ONE TABLET BY MOUTH ONCE A DAY FOR ALLERGY SYMPTOMS (DME) [facility] Card Home Tst Kit See Rx Instructions .Route Qty: 4 0RF Rx Instructions: As directed oseltamivir 75 mg capsule 75 mg PO BID 5 Days Qty: 10 0RF mupirocin 2 % ointment 1 applic topical BID Qty: 15 0RF sulfamethoxazole-trimethoprim [Bactrim DS] 800-160 mg tablet 1 tab PO BID 7 Days Qty: 14 0RF mupirocin 2 % ointment 1 applic topical BID 7 Days Qty: 22 0RF Referrals Follow up/Referrals: Loida Daniels PA [Primary Care Provider] - See instructions Activity Restrictions/Add. Instructions Additional Instructions/Restrictions: Drink plenty of fluids. Take tylenol for pain or fever. Return if you begin to have difficulty breathing. Follow up with your regular doctor. GO TO THE ER FOR ANY WORSENING SYMPTOMS Clinical Impressions Clinical Impression: Exposure to 2019 novel coronavirus Stand Alone Forms Stand Alone Forms: Work/School Release Instructions Patient Instructions: COVID-19 Viral Test Discharge ED Provider: Kyle Mehta [facility] General Stated complaint: congestion covid test Time Seen by Provider: 02/20/23 14:33 History of Present Illness Provider Complaint: He states that he has been exposed to covid-19 in his home. Related Data Home Medications Medication Instructions Recorded Confirmed albuterol sulfate 90 mcg/actuation 2 inh inhalation DAILYP PRN 03/16/21 01/29/23 aerosol inhaler (ProAir HFA) Shortness Of Breath Previous Rx's Medication Instructions Recorded cholecalciferol (vitamin D3) 50 50 mcg PO DAILY #90 caps 03/15/22 mcg (2,000 unit) capsule montelukast 10 mg tablet See Rx Instructions .Route 08/24/22 .COMPLEX #90 tabs COVID-19 antigen test (BinaxNOW #4 ea 11/01/22 COVID-19 Ag Card Home Test kit) famotidine 40 mg tablet 40 mg PO DAILY GERD #90 tabs 11/15/22 fluticasone furoate 200 See Rx Instructions .Route 11/15/22 mcg-vilanterol 25 mcg/dose .COMPLEX #60 ea inhalation powder (Breo Ellipta) loratadine 10 mg tablet See Rx Instructions .Route 11/15/22 .COMPLEX #30 tabs pantoprazole 40 mg tablet,delayed See Rx Instructions .Route 11/15/22 release .COMPLEX #30 tabs gabapentin 100 mg capsule 200 mg PO BID 30 days #120 caps 11/20/22 cephalexin 500 mg capsule 500 mg PO TID 7 days #21 caps 01/25/23 mupirocin 2 % topical ointment 1 applic topical BID #15 grams 01/26/23 oseltamivir 75 mg capsule 75 mg PO BID 5 days #10 caps 01/26/23 methylprednisolone 4 mg tablets in See Rx Instructions PO PER PKG DIR 01/29/23 a dose pack #21 tabs promethazine-DM 6.25 mg-15 mg/5 mL 5 ml PO Q4-6H PRN cough #118 mL 01/29/23 oral syrup mupirocin 2 % topical ointment 1 applic topical BID 7 days #22 02/14/23 grams sulfamethoxazole 800 1 tab PO BID 7 days #14 tabs 02/14/23 mg-trimethoprim 160 mg tablet (Bactrim DS) amoxicillin 875 mg tablet 875 mg PO Q12H #20 tabs 02/20/23 Allergies Allergy/AdvReac Type Severity Reaction Status Date / Time No Known Allergies Allergy Verified 01/29/23 10:45 [facility] Disclaimer: The information contained in this section may have been updated after the patient was seen, as this information can be updated by other users. 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 Asthma Kapil is on 2 inhalers. The albuterol for as needed exacerbations and the fluticasone vilanterol inhaler on a daily basis. He does use these daily. Additionally he is taking loratadine and montelukast for allergies. Cannabinoid hyperemesis syndrome I think part of Kapil's nausea and vomiting and other issues with his stomach . Is due to the chronic use of marijuana. He may well have a cannabinoid or marijuana hyperemesis syndrome. He is following with GI for this. I would expect this to improve since he has stopped smoking marijuana over time. Cannabis use disorder Kapil has quit marijuana. I congratulated him on this. He has been off this now for 3 weeks. However with his very long history of chronic daily marijuana usage is going to take a while for him to not feel the effects of withdrawal etc. we will continue to support him in this. Chronic back pain Feels that the gabapentin has been very helpful with his pain. He does take the medication 200 mg twice a day sometimes 3 times a day. We will increase this to 3 times a day I just do not see any problem with that. He has clear pain he has clear radicular components and this is hindered his function. Gabapentin does help him to have more function and a better quality of life. Degenerative disc disease, lumbar Elevated cholesterol with elevated triglycerides Kapil has had elevated total cholesterol, total triglycerides, and LDL. These are only mildly elevated. I have suggested to Kapil that he start taking omega-3 in 6 supplements on a daily basis. Studies have shown that these will reduce total cholesterol triglycerides and increase HDL. We will retest his lipid panel fasting in approximately 4 to 8 weeks. Elevated total protein In February just had an elevated total protein and total globulin levels. They were mildly elevated so I am not sure this is a significant finding. We will check a complete metabolic panel today just to make sure these of come back to normal. Environmental and seasonal allergies Chest and is taking montelukast and loratadine for this. We will provide these prescriptions if he needs at this point he does not. Gastroesophageal reflux disease Insomnia Kapil is complaining of insomnia. I do think this is probably related to him stopping his marijuana smoking. I have suggested that he try [id number] options such as herbal supplements, lavender, and melatonin. He did try melatonin in the past without success but only used it a few days. Melatonin should be used for at least 2 to 4 weeks for any benefit to be seen to reset the sleep-wake cycle. I discussed all this with Kapil. Additionally told him that if [id number] herbals and other preparations do not work that we are certainly happy to consider prescribing him medication. I would expect this to improve over time as he detoxify the system from the chronic marijuana usage. Low back pain radiating to left leg Lumbar radiculopathy Lumbar spondylosis Streptococcal sore throat Surgical History No significant past surgical history Family History Other No significant family history Social History Smoking Status: Current every day smoker tobacco type: cigarettes packs per day: 1 alcohol intake: never substance use type: marijuana current occupational status: employed Travel in the last 8 weeks: Inside the [place] household members: other housing: house current occupational exposures/hazards: No caffeine: Yes ROS Obtained: Yes All systems reviewed & no additional complaints except as documented Constitutional Constitutional: Denies chills and Denies fever(s) Eyes Eyes: Denies eye discharge ENT Ears, Nose, Mouth, and Throat: Denies dizziness, Denies otalgia and Denies sore throat Cardiovascular Cardiovascular: Denies chest pain Respiratory Respiratory: Denies shortness of breath, Denies chest congestion, Denies cough, Denies stridor and Denies wheezing Gastrointestinal Gastrointestingal: Denies nausea or vomiting Musculoskeletal Musculoskeletal: Reports system reviewed and no additional complaints, except as documented and Denies arthralgias Integumentary/Breasts Skin/Breast: Denies rash Neurologic Neurologic: Denies dizziness and Denies paresthesias Allergic/Immunologic Allergic/Immunologic: Denies wheezing Physical Exam General General appearance: alert and in no apparent distress Head Head exam: atraumatic, normocephalic and normal inspection Eye Eye exam: Present normal appearance, PERRL and EOMI ENT ENT exam: Present normal exam, normal oropharynx, mucous membranes moist, TM's normal bilaterally and normal external ear exam Neck Neck exam: Present normal inspection, full ROM and trachea midline; Absent me ningismus or lymphadenopathy Chest Chest inspection: Present normal inspection and symmetric chest wall rise; Absent tenderness Respiratory Respiratory exam: Present normal lung sounds bilaterally; Absent respiratory distress Cardiovascular Cardiovascular exam: Present regular rate and normal rhythm; Absent JVD Abdominal Exam Abdominal exam: Present soft and normal bowel sounds; Absent distention, ten derness or guarding Extremities Exam Extremities exam: Present normal inspection, full ROM and normal capillary refill; Absent calf tenderness Back Exam Back exam: Present normal inspection; Absent tenderness Neurological Exam Neurological exam: Present alert and oriented X3 Psychiatric Psychiatric exam: Present normal affect and normal mood Skin Skin exam: Present warm, dry, intact and normal color Lymphatic Lymphatic Findings: no adenopathy Medical Decision Making Medical Records Medical records reviewed: No I reviewed the patient's medical records. Michele Inquiry Pt receiving controlled substance: No
[2023-02-20 15:28] VITALS: BP 117/73; PULSE 94; RESP 18; TEMP 36.8; O2SAT 96
== END 2023-02-20 15:27 | disposition home or self-care (01) ==
PROVIDERS: Emergency Provider Nurse Practitioner Family; PCP Physician Assistant
DX: R09.81 Nasal congestion (principal); F17.210 Nicotine dependence, cigarettes, uncomplicated; Z20.822 Contact with and (suspected) exposure to COVID-19
CPT/HCPCS: 87635; 99212; 99214; G0463

== ENCOUNTER 2023-04-10 13:16 | Outpatient (CLI) | payer BC, SELFPAY | END 2023-04-10 23:59 | LOC: LAB.DROPOF 13:18 | PROVIDERS: PCP Student in an Organized Health Care Education/Training Program; Visit Provider Student in an Organized Health Care Education/Training Program | DX: R50.9 Fever, unspecified (principal); J02.9 Acute pharyngitis, unspecified; B95.0 Streptococcus, group A, as the cause of diseases classified elsewhere | CPT/HCPCS: 87070 ==

== ENCOUNTER 2023-10-20 10:57 | Emergency (ER) | payer BC, SELFPAY ==
[2023-10-20 11:15] VITALS: BP 124/85; PULSE 93; RESP 21; TEMP 36.8; O2SAT 98; BMI 30.1
--- NOTE | 2023-10-20 11:35 | ED_ITS ---
Discharge Plan Disposition Patient Disposition: Home, Self-Care Condition: Good Prescriptions Prescriptions: No Action gabapentin 100 mg capsule 200 mg PO BID Qty: 120 3RF cholecalciferol (vitamin D3) [Vitamin D3] 50 mcg (2,000 unit) capsule See Rx Instructions .ROUTE .COMPLEX Qty: 90 3RF Dose Instruction: TAKE ONE CAPSULE BY MOUTH ONCE A DAY Rx Instructions: TAKE ONE CAPSULE BY MOUTH ONCE A DAY fluticasone furoate-vilanterol [Breo Ellipta] 200-25 mcg/dose blister with device See Rx Instructions .ROUTE .COMPLEX Qty: 60 2RF Dose Instruction: INHALE 1 PUFF BY MOUTH ONCE A DAY. RINSE MOUTH AND SPIT AFTER USE, DO NOT SWALLOW Rx Instructions: INHALE 1 PUFF BY MOUTH ONCE A DAY. RINSE MOUTH AND SPIT AFTER USE, DO NOT SWALLOW montelukast 10 mg tablet See Rx Instructions .ROUTE .COMPLEX Qty: 90 3RF Dose Instruction: TAKE ONE TABLET BY MOUTH ONCE A DAY FOR ALLERGY SYMPTOMS Rx Instructions: TAKE ONE TABLET BY MOUTH ONCE A DAY FOR ALLERGY SYMPTOMS Referrals Follow up/Referrals: Ramirez Webster APRN [Primary Care Provider] - See instructions Activity Restrictions/Add. Instructions Additional Instructions/Restrictions: rest Ice with cold pack for 20 minutes remove may repeat for comfort every hour annalee for support and swelling no less in the shower. Be sure not too tight but not to lose either Ibuprofen every 6 hours as needed for pain or inflammation. If needs something more you can take Tylenol every 4 hours as needed as long as her primary care has told he was okayed for you to take both. Follow-up immediately if new or worsening symptoms or no noticeable improvement over the next 3-5 days. call ortho if no improvement Clinical Impressions Clinical Impression: Contusion Instructions Patient Instructions: DI for Contusion Print Language Print Language: Malian Discharge ED Provider: Jabari ([facility])A[facility]a [facility] [place] HPI General Stated complaint: swelling, bruising, pain in L hand x3 weeks-no acc Mode of Arrival: Ambulatory Source of Information: Patient Limitations: No Limitations Time Seen by Provider: 10/20/23 11:35 Description of Symptoms (Recalled from Triage Doc. 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 it but doesnt remember Related Data Previous Rx's ?Medication ?Instructions ?Recorded gabapentin 100 mg capsule 200 mg (2 x 100 mg) PO BID #120 06/13/23 caps cholecalciferol (vitamin D3) 50 See Rx Instructions .Route 07/26/23 mcg (2,000 unit) capsule (Vitamin .COMPLEX #90 caps D3) fluticasone furoate 200 See Rx Instructions .Route 08/24/23 mcg-vilanterol 25 mcg/dose .COMPLEX #60 blisters inhalation powder (Breo Ellipta) montelukast 10 mg tablet See Rx Instructions .Route 08/28/23 .COMPLEX #90 tabs Allergies Allergy/AdvReac Type Severity Reaction Status Date / Time No Known Allergies Allergy Verified 06/13/23 10:34 Worker's Comp Is this a Worker's Comp case?: No PFS PFS Disclaimer: The information contained in this section may have been updated after the patient was seen, as this information can be updated by other users. 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) Smoking Status: Current every day smoker tobacco type: cigarettes packs per day: 1 alcohol intake: never substance use type: marijuana current occupational status: employed Travel in the last 8 weeks: [place] the [place] household members: other housing: house current occupational exposures/hazards: No caffeine: Yes ROS Obtained: Yes All systems reviewed & no additional complaints except as documented Constitutional Constitutional: Reports system reviewed and no additional complaints, except as documented Eyes Eyes: Reports system reviewed and no additional complaints, except as documented ENT Ears, Nose, Mouth, and Throat: Reports system reviewed and no additional complaints, except as documented Cardiovascular Cardiovascular: Reports system reviewed and no additional complaints, except as documented Respiratory Respiratory: Reports system reviewed and no additional complaints, except as documented Musculoskeletal Musculoskeletal: Reports system reviewed and no additional complaints, except as documented, Reports as per HPI, Reports arthralgias and Reports joint swelling Integumentary/Breasts Skin/Breast: Reports system reviewed and no additional complaints, except as documented Neurologic Neurologic: Reports system reviewed and no additional complaints, except as documented Endocrine Endocrine: Reports system reviewed and no additional complaints, except as documented Physical Exam General General appearance: alert and in no apparent distress Head Head exam: atraumatic Eye Eye exam: Present normal appearance and PERRL ENT ENT exam: Present normal exam Respiratory Respiratory exam: Present normal lung sounds bilaterally Cardiovascular Cardiovascular exam: Present regular rate and normal rhythm Expanded Upper Extremity Exam Left: Hand L/R back image: 2 1. swelling, tender Neurological Exam Neurological exam: Present alert and oriented X3 Skin Skin exam: Present warm and intact Lymphatic Lymphatic Findings: no adenopathy Medical Decision Making Medical Records Medical records reviewed: Yes I reviewed the patient's medical records. Michele Inquiry Pt receiving controlled substance: No Michele was queried for this patient: No Vital Signs: 10/20/23 11:15 Temperature 98.2 F Temperature Source Oral Pulse Rate [Right Brachial] 93 H Respiratory Rate 21 Blood Pressure [Right Arm] 124/85 Blood Pressure Mean [Right Arm] 98 Blood Pressure Source [Right Arm] Automatic Cuff Blood Pressure Position [Right Arm] Sitting 02 Sat by Pulse Oximetry 98 Oxygen Delivery Method Room Air Radiology Data #1: Image(s): Hand Image Reviewed: Yes I reviewed the patient's radiology image Preliminary Findings: Normal/NAD
--- NOTE | 2023-10-20 11:38 | XR_ITS ---
PROCEDURE INFORMATION: Exam: XR Left Hand Exam date and time: 10/20/2023 11:33 AM Age: 38 years old Clinical indication: Pain; Hand; Left; Additional info: Pain/swelling TECHNIQUE: Imaging protocol: Radiologic exam of the left hand. Views: 3 or more views. COMPARISON: No relevant prior studies available. FINDINGS: Bones/joints: There is a bandlike lucency projecting over the base of the 4th metacarpal on one view believed artifactual due to bony overlap. Osseous structures and joint surfaces are otherwise unremarkable. No malalignment or bone lesion detected. Soft tissues: Unremarkable. IMPRESSION: No acute bony abnormalities.
[2023-10-20 11:52] VITALS: BP 124/85; PULSE 93; RESP 21; TEMP 36.8; O2SAT 98
== END 2023-10-20 11:56 | disposition home or self-care (01) ==
PROVIDERS: Emergency Provider Nurse Practitioner Family; PCP Nurse Practitioner Family
DX: S60.222A Contusion of left hand, initial encounter (principal); M79.642 Pain in left hand; X58.XXXA Exposure to other specified factors, initial encounter
CPT/HCPCS: 73130; 99212; 99213; G0463

== ENCOUNTER 2023-12-06 07:58 | Emergency (ER) | payer BC, SELFPAY ==
[2023-12-06 08:10] VITALS: BP 124/79; PULSE 86; RESP 20; TEMP 37.1; O2SAT 98; BMI 31.9
--- NOTE | 2023-12-06 08:21 | EXP.UTC ---
Discharge Plan Disposition Patient Disposition: Home, Self-Care Condition: Good Prescriptions Prescriptions: New azithromycin [Zithromax] 250 mg tablet 250 mg PO UD DOSE PK Qty: 6 0RF Rx Instructions: Take two (2) tablets today, then one (1) tablet days #2 thru #5 methylprednisolone 4 mg Tablets,Dose Pack 4 mg PO DIRECTED 6 Days Qty: 21 0RF Rx Instructions: Take 1 pack as directed for 6 days wuyunaxjznrmyyv-ffyeknbfh-JY [Bromfed DM] 2-30-10 mg/5 mL Syrup 5 ml PO Q6H PRN (Reason: Cough) Qty: 240 0RF No Action cholecalciferol (vitamin D3) [Vitamin D3] 50 mcg (2,000 unit) capsule See Rx Instructions .ROUTE .COMPLEX Qty: 90 3RF Dose Instruction: TAKE ONE CAPSULE BY MOUTH ONCE A DAY Rx Instructions: TAKE ONE CAPSULE BY MOUTH ONCE A DAY montelukast 10 mg tablet See Rx Instructions .ROUTE .COMPLEX Qty: 90 3RF Dose Instruction: TAKE ONE TABLET BY MOUTH ONCE A DAY FOR ALLERGY SYMPTOMS Rx Instructions: TAKE ONE TABLET BY MOUTH ONCE A DAY FOR ALLERGY SYMPTOMS gabapentin 100 mg capsule 200 mg PO BID Qty: 120 1RF Rx Instructions: No further refills until seen in office cetirizine [Zyrtec] 10 mg Tablet 10 mg PO DAILY fluticasone furoate-vilanterol [Breo Ellipta] 200-25 mcg/dose blister with device 1 inh INHALATION DAILY Referrals Follow up/Referrals: Ramirez Webster APRN [Primary Care Provider] - See instructions Activity Restrictions/Add. Instructions Additional Instructions/Restrictions: Drink plenty of fluids. Take tylenol or ibuprofen for pain or fever. Take the medications as directed. Follow up with your regular doctor. GO TO THE ER FOR ANY WORSENING SYMPTOMS Clinical Impressions Clinical Impression: Asthma exacerbation, Sinusitis Stand Alone Forms Stand Alone Forms: Work/School Release Instructions Patient Instructions: Sinusitis, DI for Sinusitis Print Language Print Language: Uzbek Discharge ED Provider: Kyle Mehta [facility] HPI General Stated complaint: cough, vomiting, weak Mode of Arrival: Ambulatory Source of Information: Patient Limitations: No Limitations Time Seen by Provider: 12/06/23 08:21 Description of Symptoms (Recalled from Triage Doc. by RN): PATIENT C/O COUGH, LOW-GRADE FEVER, VOMITING, AND SORE THROAT X 2 DAYS HEENT Symptoms (Recalled from RN notes): Yes Resp Symptoms (Recalled from RN notes): Yes Skin Symptoms (Recalled from RN notes): No MS Symptoms (Recalled from RN notes): No Functional Status (Recalled from RN notes): WNL Related Data Home Medications ?Medication ?Instructions ?Recorded ?Confirmed cetirizine 10 mg tablet (Zyrtec) 10 mg PO DAILY 12/06/23 12/06/23 fluticasone furoate 200 1 inh inhalation DAILY 12/06/23 12/06/23 mcg-vilanterol 25 mcg/dose inhalation powder (Breo Ellipta) Previous Rx's ?Medication ?Instructions ?Recorded cholecalciferol (vitamin D3) 50 See Rx Instructions .Route 07/26/23 mcg (2,000 unit) capsule (Vitamin .COMPLEX #90 caps D3) montelukast 10 mg tablet See Rx Instructions .Route 08/28/23 .COMPLEX #90 tabs gabapentin 100 mg capsule 200 mg (2 x 100 mg) PO BID #120 11/29/23 caps azithromycin 250 mg tablet 250 mg PO UD DOSE PK #6 tabs 12/06/23 (Zithromax) ylioezpcekdphgv-tnkozmedvcdgawy-ZN 5 ml PO Q6H PRN Cough #240 mL 12/06/23 2 mg-30 mg-10 mg/5 mL oral syrup (Bromfed DM) methylprednisolone 4 mg tablets in 4 mg PO DIRECTED 6 days #21 tabs 12/06/23 a dose pack Allergies Allergy/AdvReac Type Severity Reaction Status Date / Time No Known Allergies Allergy Verified 06/13/23 10:34 Worker's Comp Is this a Worker's Comp case?: No [facility] Disclaimer: The information contained in this section may have been updated after the patient was seen, as this information can be updated by other users. 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) No significant family history Social History , 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) Smoking Status: Current every day smoker tobacco type: cigarettes packs per day: 1 alcohol intake: never substance use type: marijuana current occupational status: employed Travel in the last 8 weeks: Inside the [employer] States household members: other housing: house current occupational exposures/hazards: No caffeine: Yes ROS Obtained: Yes All systems reviewed & no additional complaints except as documented Constitutional Constitutional: Reports poor appetite Eyes Eyes: Reports system reviewed and no additional complaints, except as documented ENT Ears, Nose, Mouth, and Throat: Reports as per HPI Cardiovascular Cardiovascular: Reports system reviewed and no additional complaints, except as documented and Denies chest pain Respiratory Respiratory: Denies shortness of breath, Reports chest congestion, Reports cough, Denies stridor and Denies wheezing Gastrointestinal Gastrointestingal: Reports system reviewed and no additional complaints, except as documented; Denies abdominal pain, diarrhea or vomiting Musculoskeletal Musculoskeletal: Reports system reviewed and no additional complaints, except as documented and Denies arthralgias Integumentary/Breasts Skin/Breast: Reports system reviewed and no additional complaints, except as documented and Denies rash Neurologic Neurologic: Denies paresthesias Allergic/Immunologic Allergic/Immunologic: Denies wheezing Physical Exam General General appearance: alert and in no apparent distress Eye Eye exam: Present normal appearance, PERRL and EOMI ENT ENT exam: Present mucous membranes moist and normal external ear exam Expanded ENT Exam External ear exam: Present normal external inspection TM/Canal exam: Bilateral TM: erythema and bulging Nose exam: Absent sinus tenderness Nasal speculum exam: Bilateral: normal Mouth exam: Present normal external inspection; Absent drooling Teeth exam: Present normal inspection Throat exam: Present tonsillar erythema and tonsillomegaly Neck Neck exam: Present normal inspection, full ROM and trachea midline; Absent tenderness, lymphadenopathy or thyromegaly Chest Chest inspection: Present normal inspection and symmetric chest wall rise; Absent tenderness or rash Respiratory Respiratory exam: Present normal lung sounds bilaterally; Absent respiratory distress, wheezes, stridor or accessory muscle use Cardiovascular Cardiovascular exam: Present regular rate, normal rhythm and normal heart sounds Abdominal Exam Abdominal exam: Present soft; Absent distention, tenderness, guarding, rebound or rigidity Extremities Exam Extremities exam: Present normal inspection, full ROM and normal capillary refill; Absent tenderness or calf tenderness Back Exam Back exam: Present normal inspection and full ROM; Absent tenderness Neurological Exam Neurological exam: Present alert and oriented X3 Psychiatric Psychiatric exam: Present normal affect and normal mood Skin Skin exam: Present warm, dry, intact and normal color Lymphatic Lymphatic Findings: no adenopathy Medical Decision Making Medical Records Medical records reviewed: No I reviewed the patient's medical records. Screening: Per USPSTF and CDC recommendations, given the prevalence of disease in our region, it is our hospital?s policy to screen for HIV and viral Hepatitis for all patients aged 18 and over and those with ongoing risk factors. Michele Inquiry Pt receiving controlled substance: No Vital Signs: 12/06/23 08:10 Temperature 98.7 F Temperature Source Oral Pulse Rate [Left Brachial] 86 Respiratory Rate 20 Blood Pressure [Left Arm] 124/79 Blood Pressure Mean [Left Arm] 94 Blood Pressure Source [Left Arm] Automatic Cuff Blood Pressure Position [Left Arm] Sitting 02 Sat by Pulse Oximetry 98 Oxygen Delivery Method Room Air Lab Data Lab results reviewed: Yes I reviewed the patient's lab results.
[2023-12-06 08:29] LABS: UTC Influenza A Antigen Negative (Negative); UTC Influenza B Antigen Negative (Negative); UTC Strep Screen (Rapid) Negative (Negative)
[2023-12-06 08:37] VITALS: BP 124/79; PULSE 86; RESP 20; TEMP 37.1; O2SAT 98
[2023-12-06 08:55] LABS: Coronavirus 19, PCR Not Detected (NotDetected); Influenza A, PCR Not Detected (NotDetected); Influenza B, PCR Not Detected (NotDetected)
== END 2023-12-06 08:46 | disposition home or self-care (01) ==
PROVIDERS: Emergency Provider Nurse Practitioner Family; PCP Nurse Practitioner Family
DX: J32.9 Chronic sinusitis, unspecified (principal); J45.901 Unspecified asthma with (acute) exacerbation; R05.9 Cough, unspecified; R50.9 Fever, unspecified; J02.9 Acute pharyngitis, unspecified; R11.10 Vomiting, unspecified; R53.1 Weakness
CPT/HCPCS: 87636; 87804; 87880; 99212; G0381

== ENCOUNTER 2024-02-28 09:00 | Outpatient (CLI) | payer BC, SELFPAY ==
[2024-02-28 17:41] LABS: Coronavirus 19, PCR Not Detected (NotDetected); Influenza A, PCR Not Detected (NotDetected); Influenza B, PCR Not Detected (NotDetected)
== END 2024-02-28 23:59 | disposition home or self-care (01) ==
LOC: LAB.DROPOF 02-29 09:00
PROVIDERS: PCP Student in an Organized Health Care Education/Training Program; Visit Provider Student in an Organized Health Care Education/Training Program
DX: R50.9 Fever, unspecified (principal); J02.9 Acute pharyngitis, unspecified
CPT/HCPCS: 87070; 87077; 87186; 87636

== ENCOUNTER 2024-04-02 10:31 | Outpatient (CLI) | payer BC, SELFPAY ==
[2024-04-02 15:44] LABS: Coronavirus 19, PCR Not Detected (NotDetected); Human Rhinovirus Not Detected (NotDetected); Influenza A, PCR Not Detected (NotDetected); Influenza B, PCR Not Detected (NotDetected); Respiratory Syncytial Virus Not Detected (NotDetected)
== END 2024-04-02 23:59 | disposition home or self-care (01) ==
LOC: LAB.DROPOF 04-03 09:24
PROVIDERS: PCP Nurse Practitioner; Visit Provider Nurse Practitioner
DX: R52 Pain, unspecified (principal); J02.9 Acute pharyngitis, unspecified; R51.9 Headache, unspecified; Z72.0 Tobacco use
CPT/HCPCS: 87631

== ENCOUNTER 2024-04-16 09:25 | Outpatient (CLI) | payer BC, SELFPAY ==
[2024-04-16 21:47] LABS: Basophils # 0.1 K/mm3 (0-0.2); Basophils % 0.8 % (0.1-2.0); Eosinophils # 0.3 K/mm3 (0.0-0.4); Eosinophils % 3.9 % (0.1-12.0); Hematocrit 47.5 % (42.0-52.0); Hemoglobin 15.1 g/dL (14.1-18.0); Lymphocytes # 1.5 K/mm3 (0.7-4.5); Lymphocytes % 16.6 % (10-50); Mean Corpuscular HGB Conc 31.8 g/dL (31.8-35.4); Mean Corpuscular Hemoglobin 26.8 pg (27.0-31.2); Mean Corpuscular Volume 84.2 fl (80-94); Mean Platelet Volume 10.1 fl (7.4-10.4); Monocytes # 0.9 K/mm3 (0.1-1.0); Neutrophils % 68.1 % (37.0-80.0); Platelet Count 385 K/mm3 (142-424); Red Blood Count 5.64 M/mm3 (4.60-6.20); White Blood Count 8.8 K/mm3 (4.8-10.8)
[2024-04-16 23:06] LABS: Albumin Level 4.9 g/dl (3.5-5.0); Chloride 102 mmol/L (98-107); Potassium 4.3 mmoL/L (3.5-5.1); Sodium 138 mmol/L (136-145)
[2024-04-16 23:08] LABS: Alanine Aminotransferase 90 U/L (12-78); Anion Gap 14.3 mEq/L (5-15); Aspartate Amino Transferase 68 U/L (17-59); Blood Urea Nitrogen 11 mg/dl (9-20); Carbon Dioxide 26 mmol/L (22.0-30.0); Estimated Glomerular Filt Rate 109 ml/min (>60); GFR (African American) 132 ML/MIN (>60)
[2024-04-16 23:09] LABS: Albumin/Globulin Ratio 1.4 (1.1-1.8); Alkaline Phosphatase 113 U/L (38-126); Bilirubin,Total 0.5 mg/dl (0.2-1.3); Calcium 9.6 mg/dl (8.4-10.2); Chol/HDL Ratio 6.5 (1-3.5); Cholesterol 196 mg/dl (140-200); Globulin 3.5 g/dL (1.3-3.2); Glucose 88 mg/dl (74-100); HDL Cholesterol 30 mg/dl (40-60); Total Protein,Serum 8.4 g/dl (6.3-8.2); Triglycerides 230 mg/dl (30-150); VLDL Cholesterol 46 mg/dL (0-40)
[2024-04-16 23:21] LABS: Direct LDL Cholesterol 123.45 mg/dL (100-129)
[2024-04-17 01:10] LABS: HIV Combo NEGATIVE (Negative)
[2024-04-17 01:18] LABS: Hepatitis C Ab Qual. W/ RFX NEGATIVE (Negative)
== END 2024-04-16 23:59 | disposition home or self-care (01) ==
LOC: LAB.DROPOF 04-17 10:41
PROVIDERS: PCP Nurse Practitioner Family; Visit Provider Nurse Practitioner Family
DX: Z11.59 Encounter for screening for other viral diseases (principal); E66.09 Other obesity due to excess calories; Z68.31 Body mass index [BMI] 31.0-31.9, adult; E55.9 Vitamin D deficiency, unspecified
CPT/HCPCS: 80053; 80061; 82306; 84443; 85025; 86803; 87389

== ENCOUNTER 2024-04-28 08:01 | Outpatient (CLI) | payer BC, SELFPAY ==
[2024-04-28] MEDS: ALBUTEROL 0.083% 2.5 MG/3 ML NEB IH (08:33)
== END 2024-04-28 23:59 | disposition home or self-care (01) ==
LOC: RT 08:02
PROVIDERS: PCP Nurse Practitioner Family; Visit Provider Nurse Practitioner Family
DX: J45.30 Mild persistent asthma, uncomplicated (principal); F17.210 Nicotine dependence, cigarettes, uncomplicated
CPT/HCPCS: 94060; 94618; J7613

== ENCOUNTER 2024-11-05 07:46 | Outpatient (RCR) | payer BC, SELFPAY ==
--- NOTE | 2024-11-05 11:20 | HMH.PTOPEV ---
PT Evaluation Rehab PT Outpatient Evaluation Start: 11/05/24 08:01 Freq: Status: Active Protocol: Document 11/05/24 08:03 LAURE (Rec: 11/05/24 11:19 LAURE [id number]) E-signed By Fouzia Cano, PT Outpatient Therapy Subjective History Subjective History Pt is a 39 y/o male who reports chronic L>R low back pain for a few years. Pt reports gradual worsening of pain overtime, denies specific known trauma or injury. Pt reports left-sided low back pain and intermittent left radiating pain into the left posterior leg to the knee. Pt denies more distal symptoms, numbness/tingling or b/b dysfunction. Pt states he does get muscle spasms of the low back intermittently. Pt reports pain is aggravated by prolonged standing, walking, bending, lifting and twisting. Pt denies having recent imaging of his lumbar spine. Per records, pt had a lumbar spine MRI in 2021 with impression of Broad-based left paracentral disc protrusion at L4-5 results in left L5 nerve root impingement and severe bilateral neural foraminal narrowing. Pt states he talked to a neurosurgeon in the past who did not recommend symptoms . Pt reports he has been taking Gabapentin for a long time for low back pain but states he has recently needed to increase frequency of taking the medication due to increased pain. 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 Chief Complaint Pain Symptom Type Sharp,Shooting Symptoms Relieved By Prescription Meds Symptoms Aggravated Standing,Bending/Stooping,Physical Activity,Twisting, By Walking,Lifting Current Functional Lifting,Housework,Standing,Squatting,Recreation Limitations Activity,Walking,Bending/Stooping Symptom Description Constant but Variable Level of pain today 4 (0-10) Pain scale - at its 1 best (0-10) Pain scale - at its 8 worst (0-10) Lumbopelvic Eval Posture Lumbar Spine Posture Decreased Lordosis Standing Position Assistive device Assistive Devices None / NA Gait Observation General Gait Pattern No Deviations/Normal Observation Palapation tenderness bilateral lumbar spinal Yes: L3-L5, S1 tenderness paraspinal Yes: L>R tenderness buttock tenderness Yes: L>R piriformis, glute med min Lumbar/Sacral Tenderness Palpation Findings Lumbar/Sacral 2/4 TTP Palpation Overall Comment Accessory Movement L-spine Vertebrae Central P/A [place] Accessory Movements that Elicit Symptoms L3 bilateral L4 bilateral L5 bilateral Range of Motion Lumbar Spine Active 60 Flexion Range of Motion (degrees) Lumbar Spine Active 10 Extension Range of Motion (degrees) Left Lumbar Spine 15 Lateral Flexion Active Range of Motion (degrees) Right Lumbar Spine 15 Lateral Flexion Active Range of Motion (degrees) Manual Muscle Test Left Knee Extension 5 Normal Strength Grade Knee Flexion 5 Normal Strength Grade Hip Flexion Strength 4+ Good+ Grade Hip Abduction 4+ Good+ Strength Grade Hip Adduction 4+ Good+ Strength Grade Hip Extension 4 Good Strength Grade Ankle Dorsiflexion 5 Normal Strength Grade DTR Rt Patellar 2+ Lt Patellar 2+ Rt Gastroc/Soleus 2+ Lt Gastroc/Soleus 2+ Altered Sensation Bilateral Comment equal and intact to light touch sensation bilaterally Special Tests Sciatic Nerve Positive Left Tension Test Unilateral Straight Positive Left Leg Raise (Lasegue) Test Oswestry Index Section 1 Pain Intensity The pain is moderate and does not vary much Section 2 Personal Care ( increase the pain, but I manage not to change my way of Washing,Dresing) doing it Section 3 Lifting I can lift heavy weights, but it gives me extra pain Section 4 Walking I cannot walk at all without increasing pain Section 5 Sitting I can sit in my favorite chair for as long as I like Section 6 Standing I cannot stand more than 10 minutes without increasing pain Section 7 Sleeping I get pain in bed, but it does not prevent me from sleeping well Section 8 Social Life Pain has restricted my social life and I do not go out often Section 9 Traveling I get extra pain while traveling, but it does not compel me to seek al Section 10 Changing Degreee of My pain is neither getting better or worse Pain Score and Risk Level Oswestry Score 25 Oswestry Risk Level Severe Disability Miscellaneous Dx PT Eval Objective Objective + slump test L Core strength: 4-/5 Outpatient Therapy Assessment Impairments Problems/ Palpation Tenderness,Impaired Range of Motion,Impaired Impairmments Strength,Impaired Walking,Impaired Standing,Impaired Lifting,Impaired Bending,Impaired Work Activities, Subjective C/O Pain,Impaired Self Care/Self Management Prognosis Rehab Potential Good Clinical Impression Consistent with Yes Diagnosis PT Patient Goals PT Patient Goals PT Short Term 3 weeks: Patient Goals 1. Verbalize compliance with HEP to assist with progress. 2. Improve pain at worst to 5/10 on VAS to improve overall QOL/function. 3. Improve JAIME score to 20 or less to improve overall QOL/function. 4. Improve lumbar flex to 70 to assist with mobility and function. 5. Demonstrate proper lifting mechanics to assist with occupation. PT Care Home Patient 6 weeks: Goals 1. Improve tenderness to palpation of L3-L5 motions segments and L hip musculature to 0-1/4 to assist with pain. 2. Improve lumbar AROM flex to 80, ext to at least 15 to assist with mobility and function. 3. Improve core strength to 4-4+/5 grossly to assist with lumbar stabilization. 4. Improve JAIME score to 15 or less to improve overall QOL/function. 5. Report ability to work a full shift with pain 3/10 or less. 6. Improve pain at worst to 3/10 or less to improve overall QOL/function. Outpatient Therapy Plan of Care Treatment Plan May Include Therapeutic Exercise Yes Including Home Exercise Program Manual Therapy Yes Techniques Neuromuscular Re- Yes education Therapeutic Yes Activities to Return to Previous Functional/Work Level Gait Training Yes ADL/Self Care Yes Education Mechanical Traction Yes Dry Needling Yes Thermal Modalities Yes Electrical Yes Stimulation Ultrasound/ Yes Phonophoresis Iontophoresis Yes Massage Yes Eval/Re-Eval Yes Frequency Times per week 2 Duration Number of Weeks 4-6 Addendums This patient is a No candidate for social or vocational rehab ? Patient/Guardian Yes verbally acknowledges understanding of treatment program and consents to further treatment? Patient/Guardian Yes verbally acknowledges understanding of diagnosis, prognosis and goals for treatment? Eval Complexity PT Charges 24720 - Low Complexity Shoulder/Elbow Eval Shoulder Objective Measurements Elbow Objective Measurements PHYSICIAN CERTIFICATION: I certify the specified therapy services for Kapil Mcrae are required, authorized, and reviewed every 30 days.
== END 2024-11-05 23:59 | disposition home or self-care (01) ==
LOC: PT 07:46
PROVIDERS: Visit Provider Nurse Practitioner Family
DX: M54.50 Low back pain, unspecified (principal); M79.605 Pain in left leg; M51.369 Other intervertebral disc degeneration, lumbar region without mention of lumbar back pain or lower extremity pain
CPT/HCPCS: 97161

== ENCOUNTER 2024-12-10 08:00 | Outpatient (RCR) | payer BC, SELFPAY ==
--- NOTE | 2024-12-10 08:58 | HMH.RHREAS ---
Rehab Reassessment Rehab OP Re-assessment Start: 11/19/24 16:51 Freq: Status: Active Protocol: Document 12/10/24 08:11 CLAUDIANAPOLEON (Rec: 12/10/24 08:58 CLAUDIANAPOLEON [id number]) E-signed By Fouzia Cano, PT Oswestry Index Section 1 Pain Intensity The pain comes and goes and is moderate Section 2 Personal Care ( my way of washing or dressing even though it causes Washing,Dresing) some pain Section 3 Lifting I can lift heavy weights, but it gives me extra pain Section 4 Walking I have some pain when walking but it does not increase with distance Section 5 Sitting I can sit in any chair for as long as I like Section 6 Standing I cannot stand more than 1/2 hour without increasing pain Section 7 Sleeping I get pain in bed, but it does not prevent me from sleeping well Section 8 Social Life My social life is normal but increases the degree of pain Section 9 Traveling I get some pain when traveling, but none of my usual forms of travel m Section 10 Changing Degreee of My pain seems to be getting better, but improvement is Pain slow Score and Risk Level Oswestry Score 13 Oswestry Risk Level Mild Disability Rehab Re-assessment Subjective Subjective Pt reports he feels 25% improved since starting PT. Pt reports continued L>R low back pain with intermittent shooting pain into the left leg to his knee. Pt denies paresthesia or b/b dysfunction. Pt reports pain at worst as 6/10 on VAS aggravated by prolonged standing, prolonged walking and bending/lifting. Pt reports compliance with HEP with good tolerance. Pt reports he takes Gabapentin daily which seems to assist with pain. Objective Objective Notes Palpation: 2/4 TTP of L3-L5, lumbar PS and gluteal mm Lumbar AROM: flex 70, ext 20, RLF 10, LLF 15 Assessment Progress Assessment Progressing as Expected Assessment Notes Pt has only attended 2 PT visits since his initial evaluation performed on 11/05/24 due scheduling issues although voices compliance with HEP. Pt demonstrated improved JAIME score, subjective report of pain at worst, and lumbar AROM this date compared to the initial evaluation. Pt continues to report moderate low back pain with intermittent radiating pain into the left leg impairing functional and occupational activities. Overall, the pt would continue to benefit from skilled PT to further improve subjective report of pain, lumbar AROM, hip/core strength, and functional/occupational activity tolerance to improve overall quality of life. PT Patient Goals PT Short Term 3 weeks: 4/5 Patient Goals 1. Verbalize compliance with HEP to assist with progress. -MET 2. Improve pain at worst to 5/10 on VAS to improve overall QOL/function. -NOT MET 3. Improve JAIME score to 20 or less to improve overall QOL/function. -MET 4. Improve lumbar flex to 70 to assist with mobility and function. -MET 5. Demonstrate proper lifting mechanics to assist with occupation. -MET PT Prison Patient 6 weeks: Goals 1. Improve tenderness to palpation of L3-L5 motions segments and L hip musculature to 0-1/4 to assist with pain. 2. Improve lumbar AROM flex to 80, ext to at least 15 to assist with mobility and function. 3. Improve core strength to 4-4+/5 grossly to assist with lumbar stabilization. 4. Improve JAIME score to 15 or less to improve overall QOL/function. 5. Report ability to work a full shift with pain 3/10 or less. 6. Improve pain at worst to 3/10 or less to improve overall QOL/function. Plan Plan Continue initial POC. Frequency of Therapy 2x/week Duration of Therapy 4 more weeks Therapeutic Exercise Yes Including Home Exercise Program Manual Therapy Yes Techniques Neuromuscular Re- Yes education Therapeutic Yes Activities to Return to Previous Functional/Work Level ADL/Self Care Yes Education Mechanical Traction Yes Dry Needling Yes Thermal Modalities Yes Electrical Yes Stimulation Ultrasound/ Yes Phonophoresis Iontophoresis Yes Massage Yes Group Therapy for Yes Medicare Eval/Re-Eval Yes Time and Billing Re-Eval Time 9 Re-Eval Billing 0 Units Charge for PT No reassessment? Charge for OT No reassessment? PHYSICIAN CERTIFICATION: I certify the specified therapy services for Kapil Mcrae are required, authorized, and reviewed every 30 days.
== END 2024-12-10 23:59 | disposition home or self-care (01) ==
LOC: PT 08:00
PROVIDERS: Visit Provider Nurse Practitioner Family
DX: M54.50 Low back pain, unspecified (principal)
CPT/HCPCS: 97014; 97110; G0283

== ENCOUNTER 2024-12-24 08:00 | Outpatient (RCR) | payer BC, SELFPAY | END 2024-12-24 23:59 | disposition home or self-care (01) | LOC: PT 08:00 | PROVIDERS: PCP Nurse Practitioner Family; Visit Provider Nurse Practitioner Family | DX: M51.362 Other intervertebral disc degeneration, lumbar region with discogenic back pain and lower extremity pain (principal) | CPT/HCPCS: 97014; 97110; G0283 ==